=== PATIENT | female | born 1955 | race Caucasian/White ===

== ENCOUNTER 2020-07-17 16:26 | Outpatient (REF) | payer MEDICARE, OTHER, SELFPAY ==
--- NOTE | 2020-07-17 | MM_ITS ---
EXAMINATION: MM SCREENING DIGITAL BREAST TOMOSYNTHESIS, BILATERAL CLINICAL INFORMATION: Screening. Asymptomatic. The lifetime risk of breast cancer based on the Tyrer-Cuzick Model is 4.5%. COMPARISON: Mammography: February 21, 2019 and studies dating back to October 07, 2011 TECHNIQUE: Digital breast tomosynthesis is performed in both the craniocaudal and mediolateral oblique views along with computer-aided detection (CAD). Synthesized 2D images are generated from the tomosynthesis. FINDINGS: There are scattered areas of fibroglandular density (ACR BI-RADS breast composition Category b). There are no significant masses, abnormal calcifications, or other abnormalities. MM/MM tomosynthesis screening BI IMPRESSION: There are no significant changes from prior study. ASSESSMENT: BI-RADS 1: Negative RECOMMENDATION: Routine annual mammography screening. This patient's information was entered into a reminder system with a target due date for their next mammogram.
== END 2020-07-17 16:27 | disposition home or self-care (01) ==
LOC: HO.MAMMO 16:26
PROVIDERS: Visit Provider Internal Medicine
DX: Z12.31 Encounter for screening mammogram for malignant neoplasm of breast (principal)
CPT/HCPCS: 77063; 77067

== ENCOUNTER → 2020-08-11 08:13 | Outpatient (BNVA) | payer MEDICARE, OTHER, SELFPAY | PROVIDERS: PCP Internal Medicine; Referring Provider Internal Medicine; Visit Provider Nurse Practitioner Gerontology | DX: E11.65 Type 2 diabetes mellitus with hyperglycemia (principal); E78.5 Hyperlipidemia, unspecified | CPT/HCPCS: 82947; Q3014 ==

== ENCOUNTER 2020-09-01 17:54 | Outpatient (REF) | payer MEDICARE, OTHER, SELFPAY | END 2020-09-01 17:55 | disposition home or self-care (01) | LOC: HO.LAB 17:54 | PROVIDERS: Visit Provider Internal Medicine | DX: Z20.828 Contact with and (suspected) exposure to other viral communicable diseases (principal) | CPT/HCPCS: C9803; U0003 ==

== ENCOUNTER 2020-10-13 10:41 | Outpatient (REF) | payer MEDICARE, OTHER, SELFPAY ==
[2020-10-13 12:51] LABS: MANUAL DIFF FLAG NO
[2020-10-13 13:04] LABS: Basophils Percent Auto 0.5 % (0-2); Eosinophils Percent Auto 0.1 % (0-4); Hematocrit 44.8 % (37-47); Hemoglobin 15.5 g/dl (12.0-16.0); Imm Gran Abs Auto 0.03 X10*3/uL (0.00-0.03); Imm Gran Pct Auto 0.4 % (0.0-0.4); Lymphocytes Absolute Auto 2.2 X10*3/uL (1.2-4.9); Lymphocytes Percent Auto 27.2 % (20-40); Mean Corpuscular HGB Conc 34.6 g/dl (31.0-35.0); Mean Corpuscular Volume 89.6 fL (80-98); Mean Platelet Volume 11.2 fL (9.4-12.3); Monocytes Absolute Auto 0.3 X10*3/uL (0.1-1.2); Monocytes Percent Auto 4.1 % (2-11); Neutrophils Absolute Auto 5.5 X10*3/uL (2.0-8.3); Neutrophils Percent Auto 67.7 % (45-73); Platelet Count 332 X10*3/uL (160-400); Red Cell Distribution Width 11.9 % (11.0-16.0); White Blood Count 8.1 X10*3/uL (4.8-10.8)
[2020-10-13 13:44] LABS: Alanine Aminotransferase 30 U/L (0-31); Albumin Level 4.9 g/dL (3.5-5.0); Alkaline Phosphatase 85 U/L (39-117); Anion Gap 17 (12-20); Aspartate Amino Transferase 20 U/L (5-31); Bilirubin Total 0.6 mg/dL (0.0-1.0); Blood Urea Nitrogen 13 mg/dL (9-16); Calcium 10.3 mg/dL (8.4-10.2); Carbon Dioxide 27 mmol/L (22-29); Chloride 98 mmol/L (96-108); Estimated Glomerular Filt Rate > 60; Glucose Fasting 129 mg/dL (60-99); Potassium 4.5 mmol/L (3.3-5.1); Sodium 137 mmol/L (135-145); Total Protein 7.6 g/dL (6.5-8.0)
== END 2020-10-13 10:42 | disposition home or self-care (01) ==
LOC: HO.LAB 10:41
PROVIDERS: Absent Provider Nurse Practitioner Gerontology; PCP Internal Medicine; Visit Provider Nurse Practitioner Family
DX: E11.65 Type 2 diabetes mellitus with hyperglycemia (principal); A09 Infectious gastroenteritis and colitis, unspecified; K92.1 Melena
CPT/HCPCS: 36415; 80048; 80053; 85025; 87045; 87046

== ENCOUNTER 2020-10-21 10:43 | Outpatient (REF) | payer MEDICARE, OTHER, SELFPAY | END 2020-10-21 10:44 | disposition home or self-care (01) | LOC: HO.LAB 10:43 | PROVIDERS: PCP Internal Medicine; Visit Provider Internal Medicine | DX: Z20.822 Contact with and (suspected) exposure to COVID-19 (principal) | CPT/HCPCS: 36415; C9803; U0003; U0005 ==

== ENCOUNTER → 2020-11-10 14:45 | Outpatient (BNVA) | payer MEDICARE, OTHER, SELFPAY | PROVIDERS: PCP Internal Medicine; Visit Provider Nurse Practitioner Family | DX: Z13.89 Encounter for screening for other disorder (principal) | CPT/HCPCS: Q3014 ==

== ENCOUNTER → 2020-12-08 14:20 | Outpatient (BNVA) | payer MEDICARE, OTHER, SELFPAY | PROVIDERS: PCP Internal Medicine; Visit Provider Internal Medicine Cardiovascular Disease | DX: I77.9 Disorder of arteries and arterioles, unspecified (principal); R06.00 Dyspnea, unspecified; I10 Essential (primary) hypertension | CPT/HCPCS: 93005; 99202 ==

== ENCOUNTER → 2020-12-15 07:42 | Outpatient (REF) | payer MEDICARE, OTHER, SELFPAY ==
--- NOTE | 2020-12-15 07:45 | CA_ITS ---
Acquisition Time: 2020-12-15 08:04:50 Total Exercise Time: 00:07:12 Test Indications: Dyspnea Medications: ALBUTEROL ASA ATORVASTATIN PANTOPRAZOLE JARDIENCE LISINOPRIL Protocol: BRANDY Max HR: 157 BPM 101% of Pred: 155 BPM Max BP: 180/064 mmHG Max Work Load: 8.8 METS Exercise stress test using Brandy protocol total of 7 min 12 sec, METS 8.80 TAPHR up to 100 %. Pt tolerated well. Denies any anginal sx. EKG without any arrhythmias, no ischemic changes seen during exercise or in recovery. Hypertensive response to exercise. Test reviewed with Dr. Hwang Referred By: Leodan Lemus Overread By: Cheryle Joseph NP
== END ==
LOC: HO.CARD 07:42
PROVIDERS: Visit Provider Internal Medicine Cardiovascular Disease
DX: R06.00 Dyspnea, unspecified (principal)
CPT/HCPCS: 93016; 93017; 93018

== ENCOUNTER 2020-12-23 09:35 | Day surgery (SDC) | payer MEDICARE, OTHER, SELFPAY ==
--- NOTE | 2020-12-19 08:59 | HO.ANESPROP2 ---
Documented by User: Eugenia Vera 12/19/20 09:02 HPI - Anesthesia Eval Consult details Narrative: 65yo F for Colonoscopy Cardiac cleared at low to intermed risk PMFSH Active Problems Active Problems: All Active Problems (Updated 12/08/20 @ 14:51 by Leodan Lemus MD) ALICEA (dyspnea on exertion) (Acute) Carotid arterial disease (Acute) Hypertension (Acute) Blood in stool (Acute) Diarrhea, infectious, adult (Acute) Type 2 diabetes mellitus with hyperglycemia (Acute) Hypercholesterolemia (Acute) Hyperlipidemia LDL goal <70 (Acute) Asthma (Acute) Past Medical History Medical History Asthma Blood in stool Carotid stenosis Diarrhea, infectious, adult Fatty liver History of renal calculi Hypercholesterolemia Hyperlipidemia LDL goal <70 Hypertension Osteoporosis Tubular adenoma of colon Type 2 diabetes mellitus with hyperglycemia Family History Family History Mother No problems noted. Sister Pacemaker Brother No problems noted. Sister No problems noted. Son No problems noted. Daughter No problems noted. Family/Other Diabetes Surgical History Surgical History H/O colonoscopy History of surgery Social History Social History Household Members: Spouse and Children Alcohol intake: current Alcohol intake frequency: does not drink Smoking Status: Former smoker Smoking Quit Date: 30 years ago Use of substances other than those prescribed or required for medical reasons: No Advance Directives: No Advance Directives Information Provided: Yes Meds Allergies Allergy/AdvReac Type Severity Reaction Status Date / Time No Known Allergies Allergy Verified 11/10/20 14:45 [No Known Allergies*] Home Medications Medication Instructions Recorded Confirmed Last Taken Type aspirin 81 mg tablet,delayed 81 mg PO DAILY 06/04/20 12/23/20 12/22/20 History release cholecalciferol (vitamin D3) 25 25 mcg PO DAILY 06/04/20 12/18/20 Unknown History mcg (1,000 unit) capsule cyanocobalamin (vitamin B-12) 1,000 mcg PO DAILY 06/04/20 12/18/20 Unknown History 1,000 mcg capsule fluticasone propionate 50 1 spray INTRANASAL DAILY 06/04/20 12/18/20 Unknown History mcg/actuation nasal spray,suspension lisinopril 5 mg tablet 5 mg PO DAILY 06/04/20 12/18/20 Unknown History multivitamin 1 tab PO DAILY 06/04/20 12/18/20 Unknown History ascorbic acid 100 mg-elderberry tab PO 07/16/20 10/13/20 Unknown History fruit 50 mg chewable tablet flash glucose sensor #1 ea 08/11/20 10/13/20 Unknown History glimepiride 2 mg tablet 2 mg PO DAILY 12/08/20 12/18/20 Unknown History Exam Exam Date and Time: December 19, 2020 0859 Pertinent Lab Results Pertinent Lab Results: Laboratory Tests 10/13/20 10/13/20 10:58 10:58 WBC 8.1 Hgb 15.5 Hct 44.8 Plt Count 332 Sodium 137 Potassium 4.5 Chloride 98 Carbon Dioxide 27 BUN 13 Creatinine 0.87 Narrative Narrative: Stress 12/2020 Protocol: REILLY Max HR: 157 BPM 101% of Pred: 155 BPM Max BP: 180/064 mmHG Max Work Load: 8.8 METS Exercise stress test using Reilly protocol total of 7 min 12 sec, METS 8.80 TAPHR up to 100 %. Pt tolerated well. Denies any anginal sx. EKG without any arrhythmias, no ischemic changes seen during exercise or in recovery. Hypertensive response to exercise. Test reviewed with Dr. Hwang EKG 12/2020 Sinus tachycardia 104/min, normal EKG, QTc 462 msec Assessment and Plan Assessment Anesthesia Assessment: Chart Reviewed Documented by User: Rolando Rodriguez 12/23/20 13:29 [facility] Past Medical History Medical History Asthma Blood in stool Carotid stenosis Diarrhea, infectious, adult Fatty liver History of renal calculi Hypercholesterolemia Hyperlipidemia LDL goal <70 Hypertension Osteoporosis Tubular adenoma of colon Type 2 diabetes mellitus with hyperglycemia Family History Family History Mother No problems noted. Sister Pacemaker Brother No problems noted. Sister No problems noted. Son No problems noted. Daughter No problems noted. Family/Other Diabetes Surgical History Surgical History H/O colonoscopy History of surgery Social History Social History Household Members: Spouse and Children Alcohol intake: current Alcohol intake frequency: does not drink Smoking Status: Former smoker Smoking Quit Date: 30 years ago Use of substances other than those prescribed or required for medical reasons: No Advance Directives: No Advance Directives Information Provided: Yes Meds Allergies Allergy/AdvReac Type Severity Reaction Status Date / Time No Known Allergies Allergy Verified 11/10/20 14:45 [No Known Allergies*] Home Medications Medication Instructions Recorded Confirmed Last Taken Type aspirin 81 mg tablet,delayed 81 mg PO DAILY 06/04/20 12/23/20 12/22/20 History release cholecalciferol (vitamin D3) 25 25 mcg PO DAILY 06/04/20 12/18/20 Unknown History mcg (1,000 unit) capsule cyanocobalamin (vitamin B-12) 1,000 mcg PO DAILY 06/04/20 12/18/20 Unknown History 1,000 mcg capsule fluticasone propionate 50 1 spray INTRANASAL DAILY 06/04/20 12/18/20 Unknown History mcg/actuation nasal spray,suspension lisinopril 5 mg tablet 5 mg PO DAILY 06/04/20 12/18/20 Unknown History multivitamin 1 tab PO DAILY 06/04/20 12/18/20 Unknown History ascorbic acid 100 mg-elderberry tab PO 07/16/20 10/13/20 Unknown History fruit 50 mg chewable tablet flash glucose sensor #1 ea 08/11/20 10/13/20 Unknown History glimepiride 2 mg tablet 2 mg PO DAILY 12/08/20 12/18/20 Unknown History Exam Airway Mallampati Class: II TM Dist: >3cm Neck ROM: Full
[2020-12-23 11:12] LABS: Glucose, Whole Blood 168 mg/dL (60-115)
[2020-12-23 11:16] VITALS: BP 138/78; PULSE 100; RESP 18; TEMP 36.8; O2SAT 98; BMI 24.8
[2020-12-23] MEDS: Lactated Ringers 1,000 ML 100 ML IVCONT (11:26)
--- NOTE | 2020-12-23 11:38 | W.PM.OPN ---
Operative Note Operative Note Date of Service: 12/23/20 Narrative: Pre-op diagnosis: Colon cancer screening, past episode of diarrhea Post-op diagnosis: other (Colon polyps, diverticulosis) Procedure: COLONOSCOPY TILL CECUM WITH BIOPSIES AND SNARE POLYPECTOMY Consent: Indications for the procedure and potential complications of bleeding, perforation, reaction to medications and missed diagnosis were discussed with the patient and informed consent was obtained. Instrument: Olympus PCF H 190 L variable stiffness pediatric colonoscope Monitoring: Vital signs and clinical assessment, intermittent blood pressure monitoring, continuous EKG monitoring, Pulse oximetry and Carbon Dioxide monitoring were done throughout the procedure. Colon withdrawl time was 22 minutes. Procedure: The patient was placed in the left lateral decubitis position and pre-procedure medications were administered. After a digital rectal examination of the ano-rectum, the video colonoscope was inserted into the rectum and advanced through the colon to the cecum. The colonoscope was slowly withdrawn in a retrograde panoramic fashion and the colon mucosa was carefully examined including a retroflexed view of the rectum. Findings and interventions are described below. Procedure Difficulty: Without difficulty Findings: Terminal Ileum: Not evaluated Cecum: Normal Ascending Colon: A 4-5 mm sessile polyp, removed with the cold biopsy Transverse Colon: A 4-5 mm sessile polyp removed with the cold biopsy. 7-8 mm sessile polyp removed with a cold snare and polyp was not retrieved Descending Colon: Normal Sigmoid Colon: A 6-7 mm sessile polyp removed with the cold biopsy. Moderate diverticulosis Rectum: Normal Ano-rectum: Normal Colon preparation: Good after copious irrigation Impression and Post Procedure Diagnosis: Colonoscopy Findings: Four small polyps removed - 1 polyp was not retrieved Moderate diverticulosis seen in the sigmoid colon Plan: Await pathology results Patient has an appointment on 01/21/21 in the GI Clinic with Cheryle Joseph FNP-BC. Repeat Colonoscopy interval based on path results - in 3-5 years if polyps are adenomatous and 10 years if polyps are hyperplastic. Above findings were reviewed with the patient and colon polyps and diverticulosis handouts were given in the discharge area Surgeon: Moriah Hennessy MD Anesthesia: MAC (Licha Austin CRNA) Integrity Specialist: Natalie Hawkins Estimated blood loss (mL): 0 Pathology: other (a- ascending colon polyp b- transverse colon polyp c- random colon biopsies d- sigmoid polyp) Condition: stable Disposition: PACU
--- NOTE | 2020-12-23 11:39 | MHC.SHP ---
Pre-Procedural Eval Section A The patient is an INPATIENT: No The History & Physical has been completed within 30 days and I have reviewed it.: No Section B Chief Complaint: Screening Details of Present Illness: Colon cancer screening, history of diarrhea in the begining of oct i seen someone because i was having diarrhea for over two weeks, my stool was black but since i got medications and changed my diet it has helped a lot with that problem. I am so muh better than i was. Relevant Social History: Tobacco Use Present Medications: see Short Stay Collaborative assessment Medical History: Significant History (Asthma Blood in stool Carotid stenosis Diarrhea, infectious, adult Fatty liver History of renal calculi Hypercholesterolemia Hyperlipidemia LDL goal <70 Hypertension Osteoporosis Tubular adenoma of colon Type 2 diabetes mellitus with hyperglycemia) History of Previous Operations: Relevant previous surgery/procedure and date(s) (History of colonoscopy) Allergies: Allergies Allergy/AdvReac Type Severity Reaction Status Date / Time No Known Allergies Allergy Verified 11/10/20 14:45 [No Known Allergies*] Review of Systems Sugical H&P ROS: Negative: Constitution, Cardiovascular, Respiratory and Gastrointestinal Exam Surgical H&P Exam: Normal: Heart, Normal: Lungs, Normal: Extremities and Normal: Abdomen Plan Diagnosis/Plan: Unchanged I have reviewed the history and physical and performed a pertinent physical examination on my patient. No changes have occurred unless specified.
[2020-12-23 12:43] VITALS: BP 124/57; PULSE 96; RESP 16; TEMP 36.4; O2SAT 97
[2020-12-23 12:58] VITALS: BP 113/74; PULSE 88; RESP 16; TEMP 36.4; O2SAT 98
== END 2020-12-23 13:09 | disposition home or self-care (01) ==
PROVIDERS: PCP Internal Medicine; Visit Provider Internal Medicine Gastroenterology
PROC: 0DJD8ZZ Inspection of Lower Intestinal Tract, Via Natural or Artificial Opening Endoscopic (ICD-10-PCS; CPT 45378; principal; 2020-12-23 11:00)
DX: Z12.11 Encounter for screening for malignant neoplasm of colon (principal); Z86.010 Personal history of colon polyps; D12.3 Benign neoplasm of transverse colon; K63.5 Polyp of colon; K57.30 Diverticulosis of large intestine without perforation or abscess without bleeding; K76.0 Fatty (change of) liver, not elsewhere classified; I10 Essential (primary) hypertension; J45.909 Unspecified asthma, uncomplicated; M81.0 Age-related osteoporosis without current pathological fracture; E11.65 Type 2 diabetes mellitus with hyperglycemia; Z79.84 Long term (current) use of oral hypoglycemic drugs; Z79.82 Long term (current) use of aspirin; Z79.51 Long term (current) use of inhaled steroids; Z79.899 Other long term (current) drug therapy; Z87.891 Personal history of nicotine dependence
CPT/HCPCS: 45385; 45380; 82947; 88305

== ENCOUNTER 2020-12-29 15:23 | Outpatient (REF) | payer MEDICARE, OTHER, SELFPAY ==
--- NOTE | ~2020-12-29 | US_ITS ---
EXAMINATION: US EXTRACRANIAL CAROTID DUPLEX, BILATERAL CLINICAL INFORMATION: This is a 65-year-old female with diabetes. Carotid artery disease. COMPARISON: Comparison is made to the previous study dated 09/21/2017 which demonstrated 0-49% right internal carotid artery stenosis and 50-79% left internal carotid artery stenosis. TECHNIQUE: Real-time ultrasound and Doppler techniques (integrating B-mode 2-D vascular images, Doppler spectral analysis and color-flow Doppler imaging) were utilized to interrogate the extracranial carotid arteries, the vertebral arteries and proximal subclavian arteries bilaterally. The degree of stenosis is determined by criteria similar to NASCET. FINDINGS: Right Side: 1. There is moderate atherosclerotic plaque seen in the bifurcation/proximal ICA region. 2. The common carotid artery PSV proximally is 105 cm/s and distally 154 cm/s. 3. The proximal internal carotid artery velocities are 154 cm/s systolic and 30 cm/s diastolic. 4. The proximal external carotid artery PSV is 137 cm/s. 5. The vertebral artery shows antegrade flow. 6. The subclavian artery waveforms are normal. Left Side: 1. There is moderate atherosclerotic plaque seen in the bifurcation/proximal ICA region. 2. The common carotid artery PSV proximally is 81 cm/s and distally 144 cm/s. 3. The proximal internal carotid artery velocities are 128 cm/s systolic and 22 cm/s diastolic. 4. The proximal external carotid artery PSV is 149 cm/s. 5. The vertebral artery shows antegrade flow. 6. The subclavian artery waveforms are normal. US/US carotid duplex BI IMPRESSION: 1. RIGHT: Moderate, hemodynamically significant stenosis of the proximal right internal carotid artery corresponding to a 50-79% stenosis by velocity criteria. The category severity of disease has progressed when compared to the previous study dated 09/21/2017. 2. LEFT: Moderate, hemodynamically significant stenosis of the proximal left internal carotid artery corresponding to a 50-79% stenosis by velocity criteria. The category severity of disease appears unchanged when compared to the previous study dated 09/21/2017.
== END 2020-12-29 15:24 | disposition home or self-care (01) ==
LOC: HO.US 15:23
PROVIDERS: PCP Internal Medicine; Visit Provider Internal Medicine Cardiovascular Disease
DX: I65.03 Occlusion and stenosis of bilateral vertebral arteries (principal); I77.9 Disorder of arteries and arterioles, unspecified
CPT/HCPCS: 93880

== ENCOUNTER → 2021-01-19 08:13 | Outpatient (REF) | payer MEDICARE, OTHER, SELFPAY ==
--- NOTE | 2021-01-19 08:16 | CA_ITS ---
Transthoracic Echocardiogram Patient (Last, First, Middle): Betsy Batista, Gender: Female Date of : 1955 Age: 65 Procedure Date: 01/19/2021 Procedure Type: Transthoracic Echocardiogram Location: OP Height: 157.48 cm Weight: 58.97 kg BSA: 1.59 m2 Heart Rate: bpm BP: 136 / 70 mmHg Jira Developer: Romeo MD: Leodan Lemus MD Wood Piler: Brijesh Ward MD Symptoms: R06.00 - Dyspnea, unspecified Study Quality: Good ECG Rhythm: Sinus Conclusions: - 1. Normal LV systolic function with impaired relaxation filling pattern 2. Normal cardiac valvular Doppler 3. Normal RV systolic pressure 4. No pericardial effusion Findings Left Ventricle Normal left ventricular size, thickness, and systolic function. The visually estimated ejection fraction is between 65-70%. Spectral Doppler is indicative of an impaired relaxation filling pattern. E/E prime ratio is between 8 and 15 consistent with indeterminate filling pressures. Right Ventricle Normal right ventricular cavity size and systolic function. Atria Both atria are normal in size. Aortic Valve Normal aortic valve structure and function. There is no aortic valve stenosis. There is no aortic valve regurgitation. Mitral Valve Likely normal mitral valve structure and function. There is trace mitral valve regurgitation. There is no mitral valve stenosis. Pulmonic Valve The pulmonic valve was not well visualized. Tricuspid Valve Normal tricuspid valve structure. There is trace tricuspid valve regurgitation. The right ventricular systolic pressure is normal. The right ventricular systolic pressure is 32 mmHg. Normal right atrial pressure. There is no evidence of pulmonary hypertension. Great Vessels All visible segments of the aorta are normal in size. The pulmonary artery was not well visualized. Venous The inferior vena cava is normal in size and collapses greater than 50% with inspiration. Pericardium/Pleural There is no evidence of pericardial effusion. Prior Study Comparison No prior study available for comparison. Measurements 2D Linear Measurements RVIDd: 2.37 RVIDd Index: 1.49 IVSd: 1.03 0.6-0.9/0.6-1.0 cm LVIDd: 4.29 3.9-5.3/4.2-5.9 cm LVIDd Index: 2.70 2.4-3.2/2.2-3.1 cm/m2 LVIDs: 2.90 2.0-3.6 cm LVPWd: 0.68 0.7-1.1 cm Ao Root: 2.60 2.1-3.5 cm LA Diam: 3.30 2.7-3.8/3.0-4.0 cm LAIDs Index: 2.08 1.5-2.3 cm/m2 LV Mass: 142.64 67-162/88-224 g LV Mass Index: 89.71 43-95/49-115 g/m2 LVOT Diam: 2.00 3.0+(-)1.3 cm 2D Systolic Function EF 4C: 76.20 >55% EF 2C: 73.90 >55% EF BiP: 74.80 >55% Mitral Valve MV Pk E: 0.68 MV PK A: 0.87 MV Decel Time: 204.00 E/A: 0.80 E'Lateral: 7.74 E'Medial: 5.51 E/E' Med: 12.40 E/E' Lat: 8.80 Aortic Valve AoV Pk Porter: 1.55 AoV Mn Porter: 0.99 AoV VTI: 0.25 AoV Pk Grad: 10.00 Aov Mn Grad: 5.00 SANDRA Cont.VTI: 2.50 LVOT LVOT Pk Porter: 0.99 LVOT Mn Porter: 0.72 LVOT VTI: 0.20 LVOT Pk Grad: 4.00 LVOT Mn Grad: 2.00 LVOT Diam: 2.00 LVOT Area: 3.14 Diastolic Function MV Pk E: 0.68 MV Pk A: 0.87 E/A: 0.80 E'Medial: 5.51 E/E' Med: 12.40 E' Laterial: 7.74 E/E' Lat: 8.80 Tricuspid Valve TR Pk Porter: 2.69 TR Pk Grad: 29.00 RA Press: 3.00 RVSP: 32.00 Great Vessels Aorta Ao Root-2D: 2.60 2.0-3.7 cm Ao Asc: 2.80 2.1-3.4 cm Ao Arch: 3.20 Updated in Other Vendor System with Status of Final Brijesh Ward MD electronically signed on 01/19/2021 1:39:45 PM with status of Final
== END ==
LOC: HO.CARD 08:13
PROVIDERS: Visit Provider Internal Medicine Cardiovascular Disease
DX: R06.00 Dyspnea, unspecified (principal)
CPT/HCPCS: 93306

== ENCOUNTER → 2021-01-21 14:08 | Outpatient (BNVA) | payer MEDICARE, OTHER, SELFPAY | PROVIDERS: PCP Internal Medicine; Visit Provider Nurse Practitioner Family | DX: K57.90 Diverticulosis of intestine, part unspecified, without perforation or abscess without bleeding (principal); D36.9 Benign neoplasm, unspecified site; Z98.890 Other specified postprocedural states | CPT/HCPCS: Q3014 ==

== ENCOUNTER 2021-05-15 09:49 | Outpatient (REF) | payer MEDICARE, OTHER, SELFPAY ==
--- NOTE | ~2021-05-15 | XR_ITS ---
EXAMINATION: XR WRIST, LEFT CLINICAL INFORMATION: Pain in left wrist COMPARISON: None TECHNIQUE: PA, lateral, and oblique views of the left wrist. FINDINGS: The bones and soft tissues are normal. No fracture. Alignment is anatomic with normal joint spaces. No erosions or abnormal soft tissue calcifications. XR/XR wrist LT min 3V IMPRESSION: No acute osseous abnormality of the left wrist.
== END 2021-05-15 09:50 | disposition home or self-care (01) ==
LOC: HO.XRAY 09:49
PROVIDERS: PCP Internal Medicine; Visit Provider Internal Medicine
DX: M25.532 Pain in left wrist (principal)
CPT/HCPCS: 73110

== ENCOUNTER → 2021-05-25 11:10 | Outpatient (BNVA) | payer MEDICARE, OTHER, SELFPAY | PROVIDERS: Visit Provider Nurse Practitioner Family | DX: K57.90 Diverticulosis of intestine, part unspecified, without perforation or abscess without bleeding (principal); K21.9 Gastro-esophageal reflux disease without esophagitis | CPT/HCPCS: Q3014 ==

== ENCOUNTER → 2021-08-12 13:32 | Outpatient (BNVA) | payer MEDICARE, OTHER, SELFPAY | PROVIDERS: PCP Internal Medicine; Visit Provider Orthopaedic Surgery | DX: M65.832 Other synovitis and tenosynovitis, left forearm (principal); M65.4 Radial styloid tenosynovitis [de Quervain] | CPT/HCPCS: 20550 ×2; 99202; J1100 ==

== ENCOUNTER 2021-09-21 13:14 | Outpatient (REF) | payer MEDICARE, OTHER, SELFPAY ==
[2021-09-21 13:39] LABS: MANUAL DIFF FLAG NO
[2021-09-21 13:40] LABS: Basophils Percent Auto 0.4 % (0-2); Eosinophils Absolute Auto 0.1 X10*3/uL (0.0-0.4); Eosinophils Percent Auto 1.4 % (0-4); Hematocrit 45.6 % (37.0-47.0); Hemoglobin 15.5 g/dl (12.0-16.0); Imm Gran Abs Auto 0.03 X10*3/uL (0.00-0.03); Imm Gran Pct Auto 0.4 % (0.0-0.4); Lymphocytes Absolute Auto 2.3 X10*3/uL (1.2-4.9); Lymphocytes Percent Auto 31.1 % (20-40); Mean Corpuscular Hemoglobin 30.7 pg (27.0-33.0); Mean Corpuscular Volume 90.3 fL (80.0-98.0); Monocytes Absolute Auto 0.4 X10*3/uL (0.1-1.2); Neutrophils Absolute Auto 4.5 x10*3/uL (2.0-8.3); Neutrophils Percent Auto 61.7 % (45-73); Platelet Count 282 X10*3/uL (160-400); Red Blood Count 5.05 X10*6/uL (4.20-5.50); Red Cell Distribution Width 11.8 % (11.0-16.0); White Blood Count 7.4 X10*3/uL (4.8-10.8)
[2021-09-21 13:58] LABS: Estimated Average Glucose 237 mg/dL; Hemoglobin A1c % 9.9 %
[2021-09-21 14:22] LABS: Alanine Aminotransferase 19 U/L (0-31); Albumin Level 4.4 g/dL (3.5-5.0); Alkaline Phosphatase 97 U/L (39-117); Anion Gap 14 (12-20); Aspartate Amino Transferase 15 U/L (5-31); Bilirubin Total 0.5 mg/dL (0.0-1.0); Blood Urea Nitrogen 17 mg/dL (9-16); Calcium 10.6 mg/dL (8.4-10.2); Carbon Dioxide 28 mmol/L (22-29); Chloride 101 mmol/L (96-108); Cholesterol 310 mg/dL; Estimated Glomerular Filt Rate 51; Glucose Random 390 mg/dL (60-115); HDL Cholesterol 46 mg/dL; LDL Cholesterol Calculated 196 mg/dl; Sodium 138 mmol/L (135-145); Total Protein 7.2 g/dL (6.5-8.0); Triglycerides 341 mg/dL
[2021-09-21 14:25] LABS: Free T4 (Free Thyroxine) 1.12 ng/dL (0.71-1.85); Thyroid Stimulating Hormone 1.22 uIU/mL (0.32-4.0); Vitamin D 25-OH Total 36.4 ng/mL (>30)
[2021-09-21 14:46] LABS: Folate > 20.0 ng/mL (> or = 4.0); Vitamin B12 856 pg/mL (200-900)
[2021-09-22 04:26] LABS: HBc Num1 0.09 S/CO (0.00-0.79); Hepatitis B Core Antibody Nonreactive (Nonreactive)
[2021-09-22 04:29] LABS: HBS Num1 1.03 mIU/mL (0-7.99); HBsAGNum1 0.29 S/CO (0.00-0.99); Hepatitis B Surface Antigen Negative (Negative); ~Hepatitis B Surface Antibody NONREACTIVE (Nonreactive)
[2021-09-22 21:27] LABS: Rubeola IgG (Measles) >300.00 AU/mL
== END 2021-09-21 13:15 | disposition home or self-care (01) ==
LOC: HO.LAB 13:14
PROVIDERS: PCP Internal Medicine; Visit Provider Internal Medicine
DX: Z01.84 Encounter for antibody response examination (principal); E11.65 Type 2 diabetes mellitus with hyperglycemia; E78.00 Pure hypercholesterolemia, unspecified
CPT/HCPCS: 36415; 80053; 80061; 82306; 82607; 82746; 83036; 84439; 84443; 85025; 86704; 86706; 86735; 86762; 86765; 86787; 87340

== ENCOUNTER 2021-10-15 08:03 | Outpatient (REF) | payer MEDICARE, OTHER, SELFPAY ==
--- NOTE | ~2021-10-15 | MM_ITS ---
EXAMINATION: MM SCREENING DIGITAL BREAST TOMOSYNTHESIS, BILATERAL CLINICAL INFORMATION: Screening. Asymptomatic. The lifetime risk of breast cancer based on the Tyrer-Cuzick Model is 2.6%. COMPARISON: Mammography: July 17, 2020 and studies dating back to December 26, 2013 TECHNIQUE: Digital breast tomosynthesis is performed in both the craniocaudal and mediolateral oblique views along with computer-aided detection (CAD). Synthesized 2D images are generated from the tomosynthesis. FINDINGS: There are scattered areas of fibroglandular density (ACR BI-RADS breast composition Category b). There are no significant masses, abnormal calcifications, or other abnormalities. MM/MM tomosynthesis screening BI IMPRESSION: There are no significant changes from prior study. ASSESSMENT: BI-RADS 1: Negative RECOMMENDATION: Routine annual mammography screening. This patient's information was entered into a reminder system with a target due date for their next mammogram.
== END 2021-10-15 08:04 | disposition home or self-care (01) ==
LOC: HO.MAMMO 08:03
PROVIDERS: Visit Provider Internal Medicine
DX: Z12.31 Encounter for screening mammogram for malignant neoplasm of breast (principal)
CPT/HCPCS: 77063; 77067

== ENCOUNTER 2021-10-23 08:12 | Outpatient (REF) | payer MEDICARE, OTHER, SELFPAY ==
--- NOTE | ~2021-10-23 | MM_ITS ---
EXAMINATION: BONE DENSITOMETRY CLINICAL INDICATION: Osteopenia. COMPARISON: Previous BD dated 01/12/2018 and baseline BD dated 08/20/2010. TECHNIQUE: Using a [employer] DXA System (software version: 13.1) manufactured by [employer], dual-energy x-ray absorptiometry was performed of the lumbar spine and left hip. The images are of good technical quality. Summary results are attached. FINDINGS: AP SPINE L1-L4: Current: BMD 0.995 g/cm2, Z-score 0.3, T-score -1.5, osteopenia, 3.1% decrease from previous, 2.5% increase from baseline (<5% change is not significant). Prior: BMD 1.027 g/cm2. Baseline: BMD 0.971 g/cm2. LEFT FEMUR, NECK: Current: BMD 0.757 g/cm2, Z-score -0.3, T-score -2.0, osteopenia. Prior: BMD 0.670 g/cm2. Baseline: BMD 0.821 g/cm2. LEFT FEMUR, TOTAL: Current: BMD 0.835 g/cm2, Z-score 0.1, T-score -1.4, osteopenia, 12.1% increase from previous, 8.1% decrease from baseline (<5% change is not significant). Prior: BMD 0.745 g/cm2. Baseline: BMD 0.909 g/cm2. IDENTIFIED RISK FACTORS: Menopause, osteoporosis. HISTORY OF FRACTURE: None listed. MEDICATIONS: Vitamin D. MM/XR DEXA axial skeleton IMPRESSION: 1. DIAGNOSIS: Osteopenia based on the lowest T-score value of -2.0 in the femoral neck applying World Health Organization criteria. 2. 10-YEAR FRACTURE RISK PREDICTION, FRAX: Major osteoporotic fracture (clinical spine, forearm, hip or shoulder) 6.2%. Hip fracture 1.0%. 3. Treatment Recommendations: NOF guidelines recommend consideration for treatment in postmenopausal women and men age 50 and older presenting with the following: -A hip or vertebral (clinical or morphometric) fracture. -T-score less than or equal to -2.5 at the femoral neck or spine after appropriate evaluation to exclude secondary causes. -Low bone mass at the hip or spine and a 10-year fracture probability by FRAX of greater than or equal to 3% for hip fracture or greater than or equal to 20% for major osteoporotic fracture based on the [place] adapted WHO algorithm. 4. Other Recommendations: All treatment decisions require clinical judgment and consideration of individual patient factors, including patient preferences, comorbidities, previous drug use, risk factors not captured in the FRAX model (e.g. frailty, falls, vitamin D deficiency, increased bone turnover, interval significant decline in bone density) and possible under or overestimation of fracture risk by FRAX. Additional medical evaluation for secondary cause of low bone mineral density may be appropriate. FUTURE SCAN RECOMMENDATION: People with diagnosed cases of osteoporosis or at high risk for fracture should have regular bone mineral density tests. For patients eligible for Medicare, routine testing is allowed once every 2 years. The testing frequency can be increased to one year for patients who have rapidly progressing disease, those who are receiving or discontinuing medical therapy to restore bone mass, or have additional risk factors.
== END 2021-10-23 08:13 | disposition home or self-care (01) ==
LOC: HO.MAMMO 08:12
PROVIDERS: Visit Provider Internal Medicine
DX: Z13.820 Encounter for screening for osteoporosis (principal); M81.0 Age-related osteoporosis without current pathological fracture; M85.80 Other specified disorders of bone density and structure, unspecified site; Z78.0 Asymptomatic menopausal state; Z79.899 Other long term (current) drug therapy
CPT/HCPCS: 77080

== ENCOUNTER → 2021-12-15 15:36 | Outpatient (BNVA) | payer MEDICARE, OTHER, SELFPAY | PROVIDERS: PCP Internal Medicine; Visit Provider Orthopaedic Surgery | DX: M65.4 Radial styloid tenosynovitis [de Quervain] (principal) | CPT/HCPCS: 99212 ==

== ENCOUNTER 2022-05-01 08:39 | Emergency (ER) | payer MEDICARE, OTHER, SELFPAY ==
[2022-05-01 08:49] VITALS: BP 136/78; PULSE 90; RESP 16; TEMP 35.5; O2SAT 96; BMI 22.3
--- NOTE | 2022-05-01 08:54 | ECG_ITS ---
Test Reason : abd pain Blood Pressure : / mmHG Vent. Rate : 078 BPM Atrial Rate : 078 BPM P-R Int : 146 ms QRS Dur : 084 ms QT Int : 392 ms P-R-T Axes : 062 062 043 degrees QTc Int : 446 ms Normal sinus rhythm Normal ECG When compared with ECG of 19-DEC-2009 07:38, Heart rate has decreased Referred By: Generic ED Physician Electronically Signed By:ADOLFO JOHNSON
--- NOTE | 2022-05-01 11:03 | ED.NAVMDI ---
HPI - Nausea/Vomiting/Diarrhea General Chief complaint: Nausea/Vomiting/Diarrhea Stated complaint: Diarrhea x1 month Time Seen by Provider: 05/01/22 10:57 Source: patient Mode of arrival: ambulatory Limitations: no limitations History of Present Illness HPI Narrative: 67-year-old female came in for evaluation of diarrhea for the past 3 weeks. Patient been having nonbloody watery diarrhea for the past 3 weeks, complained of no abdominal pain, no nausea, no vomiting, no loss of weight. No fever, no chills, no recent travel, no recent use of antibiotic, no sick contact. Past medical history significant for diverticular disease. No past abdominal surgery. Related Data Home Medications Medication Instructions Recorded Confirmed aspirin 81 mg tablet,delayed 81 mg PO DAILY 06/04/20 05/15/21 release cyanocobalamin (vitamin B-12) 1,000 mcg PO DAILY 06/04/20 05/15/21 1,000 mcg capsule fluticasone propionate 50 1 spray intranasal DAILY 06/04/20 05/15/21 mcg/actuation nasal spray,suspension (Flonase Allergy Relief) multivitamin 1 tab PO DAILY 06/04/20 05/15/21 ascorbic acid 100 mg-elderberry tab PO 07/16/20 05/15/21 fruit 50 mg chewable tablet (Airborne (elderberry)) flash glucose sensor #1 ea 08/11/20 05/15/21 glimepiride 2 mg tablet 2 mg PO DAILY 12/08/20 05/15/21 Previous Rx's Medication Instructions Recorded pantoprazole 20 mg tablet,delayed 20 mg PO DAILY #90 tabs 11/10/20 release atorvastatin 80 mg tablet 80 mg PO BEDTIME #90 tabs 02/05/21 flash glucose scanning reader #1 ea 04/13/21 (FreeStyle Tip 14 Day [place]) flash glucose sensor (FreeStyle #6 kits 04/13/21 Tip 14 Day Sensor kit) WRIST SPLINT (LEFT) #1 ea 05/15/21 trazodone 50 mg tablet 50 mg PO BEDTIME #90 tabs 06/08/21 blood pressure monitor (Blood #1 ea 06/17/21 Pressure Kit) lisinopril 5 mg tablet 5 mg PO DAILY 90 days #90 tabs 06/17/21 ibuprofen 600 mg tablet 600 mg PO Q8H PRN for pain #90 tabs 08/16/21 fluticasone 100 mcg-salmeterol 50 1 ea PO BID #60 ea 10/13/21 mcg/dose blistr powdr for inhalation (Wixela Inhub) albuterol sulfate 90 mcg/actuation 2 puff PO Q4H PRN for wheezing 02/22/22 aerosol inhaler #8.5 grams empagliflozin 25 mg tablet 25 mg PO QAM 90 days #90 tabs 02/22/22 (Jardiance) Allergies Allergy/AdvReac Type Severity Reaction Status Date / Time metformin AdvReac Intermediate diarrhea Verified 12/15/21 16:21 Review of Systems Review of Systems: All other systems are reviewed and are negative Constitutional: Reports as per HPI and Reports no additional constitutional complaints Eyes: Reports as per HPI and Reports no additional eye complaints Reports system reviewed and no additional complaints, except as documented Cardiovascular: Reports as per HPI and Reports no additional cardiovascular complaints Respiratory: Reports as per HPI and Reports no additional respiratory complaints Gastrointestinal: Reports as per HPI and Reports no additional gastrointestinal complaints Genitourinary: Reports no additional female genitourinary complaints Musculoskeletal: Reports no additional musculoskeletal complaints Skin/Breast: Reports system reviewed and no additional complaints, except as docu Psychiatric: Reports no additional psychiatric complaints Endocrine: Reports no additional endocrine complaints Hematologic/Lymphatic: Reports no additional hematologic/lymphatic complaints Allergic/Immunologic: Reports no additional allergic/immunologic complaints Reports system reviewed and no additional complaints, except as documented and Reports Abnormal speech present [facility] Past Medical History Medical History Asthma Blood in stool Carotid stenosis Diarrhea, infectious, adult Diverticulosis Fatty liver History of renal calculi Hypercholesterolemia Hyperlipidemia LDL goal <70 Hypertension Osteoporosis Tubular adenoma Tubular adenoma of colon Type 2 diabetes mellitus with hyperglycemia Surgical History H/O colonoscopy History of surgery Family History Family History Mother No problems noted. Sister Pacemaker Brother No problems noted. Sister No problems noted. Son No problems noted. Daughter No problems noted. 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 Blood pressure normal. Heart rate normal. Respiration rate normal. Temperature normal. Oxygen saturation normal. Appearance: Alert. Oriented X3. No acute distress. Head: Normal external exam. Normocephalic. Atraumatic. No Noriega signs noted. No raccoon eyes noted Eyes: PERRLA. EOMI. Conjunctiva and sclera normal. Eyelids normal. ENT: TM's Normal. Pharynx normal. Uvula midline. Moist mucous membranes. No trismus noted. No drooling noted. No muffled voice noted. Neck: Normal inspection. Neck supple. FROM. No adenopathy. Thyroid Normal. No meningeal signs. No neck mass noted. CVS: Normal heart rate and rhythm. Heart sound normal. No murmurs noted. Pulses normal throughout. Respiratory: No respiratory distress. Painless inspiration. Breath sounds normal. No wheezes/rales/rhonchi noted. Chest nontender. No accessory muscle usage noted or decreased air movement noted. Abdomen: Soft and nontender. Bowel sounds normal in all 4 quadrants. No distention noted. No organomegaly noted. No visible injury noted. Back: No CVA tenderness. Full range of motion noted. Skin: Skin warm and dry. Normal skin color. Normal skin turgor. No rashes/lesions/lacerations noted. Extremities: No lower extremity edema. Extremities exhibit normal range of motion. Extremities nontender. Neuro: Oriented X 3. Cranial nerve exam: II-XII are grossly intact No motor deficit. No sensory deficit. Reflexes normal. Course Course Course Narrative: Patient came in for 3 weeks history of nonbloody watery diarrhea, no recent travel, no sick contacts, no recent use of antibiotic, stool for C diff is pending, labs are unremarkable except for hyperglycemia and patient is diabetic. Patient was instructed to drink plenty of fluids to avoid dehydration, and follow-up with hard tile setter if the diarrhea persists. Few WBCs in the stool not consistent with infectious diarrhea. C diff still pending. MDM - Nausea/Vomiting/Diarrhea Lab Data Attestation: I reviewed the patient's lab results. Result diagrams: 05/01/22 11:21 05/01/22 11:21 Labs: Lab Results 05/01/22 05/01/22 05/01/22 Range/Units 11:21 11:21 11:21 WBC 5.9 (4.8-10.8) X10*3/uL RBC 4.89 (4.20-5.50) X10*6/uL Hgb 14.7 (12.0-16.0) g/dl Hct 42.6 (37.0-47.0) % MCV 87.1 (80.0-98.0) fL MCH 30.1 (27.0-33.0) pg MCHC 34.5 (31.0-35.0) g/dl RDW 11.9 (11.0-16.0) % Plt Count 298 (160-400) X10*3/uL MPV 10.4 (9.4-12.3) fL Immature Gran % (Auto) 0.3 (0.0-0.4) % Neut % (Auto) 57.0 (45-73) % Lymph % (Auto) 33.8 (20-40) % Vermillion % (Auto) 7.4 (2-11) % Eos % (Auto) 1.0 (0-4) % Baso % (Auto) 0.5 (0-2) % Lymph # (Auto) 2.0 (1.2-4.9) X10*3/uL Vermillion # (Auto) 0.4 (0.1-1.2) X10*3/uL Eos # (Auto) 0.1 (0.0-0.4) X10*3/uL Baso # (Auto) 0.0 (0.0-0.2) X10*3/uL Abs Immat Gran (auto) 0.02 (0.00-0.03) X10*3/uL Absolute Neuts (auto) 3.3 (2.0-8.3) x10*3/uL Absolute Nucleated RBC 0.000 (0.0-0.012) X10*3/uL Nucleated RBC % (auto) 0.0 (0.0-0.2) /100WBC Sodium 143 (135-145) mmol/L Potassium 4.2 (3.3-5.1) mmol/L Chloride 105 (96-108) mmol/L Carbon Dioxide 29 (22-29) mmol/L Anion Gap 13 (12-20) BUN 14 (9-16) mg/dL Creatinine 0.83 (0.5-1.4) mg/dL Estim Creat Clear Calc 51.9 Estimated GFR > 60 Random Glucose 181 H (60-115) mg/dL Calcium 9.7 D (8.4-10.2) mg/dL Total Bilirubin 0.7 (0.0-1.0) mg/dL Direct Bilirubin 0.2 (0.0-0.5) mg/dL AST 19 (5-31) U/L ALT 19 (0-31) U/L Alkaline Phosphatase 101 (39-117) U/L Total Protein 6.8 (6.5-8.0) g/dL Albumin 4.3 (3.5-5.0) g/dL Lipase 43 (8-78) U/L Stool Leukocytes, Qual FEW: < 2/OIF (NEGATIVE) Discharge Plan Discharge Clinical Impression: Diarrhea Patient Disposition: Home, Self-Care Instructions: Acute Diarrhea (ED) Prescriptions: No Action pantoprazole 20 mg tablet,delayed release (DR/EC) 20 mg PO DAILY Qty: 90 0RF atorvastatin 80 mg tablet 80 mg PO BEDTIME Qty: 90 0RF trazodone 50 mg tablet 50 mg PO BEDTIME Qty: 90 2RF ibuprofen 600 mg tablet 600 mg PO Q8H PRN (Reason: for pain) Qty: 90 0RF fluticasone propion-salmeterol [Wixela Inhub] 100-50 mcg/dose blister with device 1 ea PO BID Qty: 60 11RF albuterol sulfate 90 mcg/actuation HFA aerosol inhaler 2 puff PO Q4H PRN (Reason: for wheezing) Qty: 8.5 1RF Jardiance 25 mg tablet 25 mg PO QAM 90 Days Qty: 90 1RF multivitamin Tablet 1 tab PO DAILY aspirin 81 mg tablet,delayed release (DR/EC) 81 mg PO DAILY fluticasone propionate [Flonase Allergy Relief] 50 mcg/actuation spray,suspension 1 spray intranasal DAILY Rx Instructions: administer into each nostril cyanocobalamin (vitamin B-12) 1,000 mcg capsule 1,000 mcg PO DAILY ascorbic acid-elderberry fruit [Airborne (elderberry)] 100-50 mg tablet,chewable PO (DME) FreeStyle Tip 14 Day Sensor Kit See Rx Instructions .ROUTE .MEDSUPPLY Qty: 6 3RF Rx Instructions: As directed (DME) FreeStyle Tip 14 Day [place] Misc See Rx Instructions .ROUTE .MEDSUPPLY Qty: 1 0RF Rx Instructions: As directed (DME) blood pressure monitor [Blood Pressure Kit] Kit See Rx Instructions .ROUTE .MEDSUPPLY Qty: 1 0RF Rx Instructions: As directed lisinopril 5 mg tablet 5 mg PO DAILY 90 Days Qty: 90 2RF (DME) WRIST SPLINT (LEFT) small See Rx Instructions .Route .MEDSUPPLY Qty: 1 0RF Rx Instructions: As directed (DME) flash glucose sensor Kit See Rx Instructions topical DAILY Qty: 1 Rx Instructions: As directed glimepiride 2 mg tablet 2 mg PO DAILY Referrals: Moriah Hennessy MD [Physician] - Po,Jeanne Hyman MD [Primary Care Provider] -
[2022-05-01] MEDS: 0.9 % Sodium Chloride 1,000 ML 999 ML IV (11:23)
[2022-05-01 11:28] LABS: MANUAL DIFF FLAG NO
[2022-05-01 11:30] LABS: Basophils Percent Auto 0.5 % (0-2); Eosinophils Absolute Auto 0.1 X10*3/uL (0.0-0.4); Hematocrit 42.6 % (37.0-47.0); Hemoglobin 14.7 g/dl (12.0-16.0); Imm Gran Abs Auto 0.02 X10*3/uL (0.00-0.03); Imm Gran Pct Auto 0.3 % (0.0-0.4); Lymphocytes Percent Auto 33.8 % (20-40); Mean Corpuscular HGB Conc 34.5 g/dl (31.0-35.0); Mean Corpuscular Hemoglobin 30.1 pg (27.0-33.0); Mean Corpuscular Volume 87.1 fL (80.0-98.0); Mean Platelet Volume 10.4 fL (9.4-12.3); Monocytes Absolute Auto 0.4 X10*3/uL (0.1-1.2); Monocytes Percent Auto 7.4 % (2-11); Neutrophils Absolute Auto 3.3 x10*3/uL (2.0-8.3); Platelet Count 298 X10*3/uL (160-400); Red Blood Count 4.89 X10*6/uL (4.20-5.50); Red Cell Distribution Width 11.9 % (11.0-16.0); White Blood Count 5.9 X10*3/uL (4.8-10.8)
[2022-05-01 11:53] LABS: Alanine Aminotransferase 19 U/L (0-31); Albumin Level 4.3 g/dL (3.5-5.0); Alkaline Phosphatase 101 U/L (39-117); Anion Gap 13 (12-20); Aspartate Amino Transferase 19 U/L (5-31); Bilirubin Direct 0.2 mg/dL (0.0-0.5); Bilirubin Total 0.7 mg/dL (0.0-1.0); Blood Urea Nitrogen 14 mg/dL (9-16); Calcium 9.7 mg/dL (8.4-10.2); Carbon Dioxide 29 mmol/L (22-29); Chloride 105 mmol/L (96-108); Creatinine Clr Calc Pharmacy 51.9; Estimated Glomerular Filt Rate > 60; Glucose Random 181 mg/dL (60-115); Lipase 43 U/L (8-78); Potassium 4.2 mmol/L (3.3-5.1); Sodium 143 mmol/L (135-145); Total Protein 6.8 g/dL (6.5-8.0)
[2022-05-01 12:31] VITALS: BP 133/68; PULSE 75; RESP 16; TEMP 36.7; O2SAT 96
[2022-05-01 12:39] LABS: Leukocytes Stool Qualitative FEW: < 2/OIF (NEGATIVE)
[2022-05-01 14:58] LABS: CDiff Gene PCR NEGATIVE (Negative)
== END 2022-05-01 14:11 | disposition home or self-care (01) ==
PROVIDERS: Emergency Provider Emergency Medicine; PCP Internal Medicine
DX: R19.7 Diarrhea, unspecified (principal); I10 Essential (primary) hypertension; E11.9 Type 2 diabetes mellitus without complications; E78.5 Hyperlipidemia, unspecified; Z79.02 Long term (current) use of antithrombotics/antiplatelets; Z79.899 Other long term (current) drug therapy; Z79.82 Long term (current) use of aspirin
CPT/HCPCS: 36415; 80048; 80076; 83690; 85025; 87493; 89055; 93005; 96360; 99284

== ENCOUNTER 2022-06-01 15:10 | Outpatient (REF) | payer MEDICARE, OTHER, SELFPAY ==
[2022-06-01 16:11] LABS: Estimated Average Glucose 166 mg/dL; Hemoglobin A1c % 7.4 %
[2022-06-01 16:21] LABS: C Reactive Protein 0.41 mg/dL (< or = 0.50)
[2022-06-01 16:43] LABS: TSH reflex Free T4 0.96 uIU/mL (0.32-4.0)
[2022-06-01 17:00] LABS: Folate > 20.0 ng/mL (> or = 4.0); Vitamin B12 750 pg/mL (200-900)
[2022-06-02 12:57] LABS: Adenovirus F 40/41 Not Detected (Not Detect.); Astrovirus Not Detected (Not Detect.); Campylobacter Not Detected (Not Detect.); Cryptosporidium Not Detected (Not Detect.); Cyclospora cayetanensis Not Detected (Not Detect.); E. coli EAEC Not Detected (Not Detect.); E. coli EPEC Not Detected (Not Detect.); E. coli ETEC Not Detected (Not Detect.); E. coli STEC Not Detected (Not Detect.); Entamoeba histolytica Not Detected (Not Detect.); Giardia lamblia Not Detected (Not Detect.); Norovirus GI/GII Not Detected (Not Detect.); Plesiomonas shigelloides Not Detected (Not Detect.); Rotavirus A Not Detected (Not Detect.); Salmonella Not Detected (Not Detect.); Sapovirus Not Detected (Not Detect.); Shigella sp./EIEC Not Detected (Not Detect.); Vibrio Not Detected (Not Detect.); Vibrio Cholerae Not Detected (Not Detect.); Yersinia enterocolitica Not Detected (Not Detect.)
[2022-06-03 23:16] LABS: Transglutaminase Ab IgG <1.0 U/mL; Transglutaminase IgA <1.0 U/mL
[2022-06-05 14:51] LABS: Vitamin D 25-OH, D2 <4 ng/mL; Vitamin D 25-OH, D3 44 ng/mL; Vitamin D 25-OH, Total 44 ng/mL (30-100)
[2022-06-08 22:42] LABS: Pancreatic Elastase-1 353 mcg/g
== END 2022-06-01 15:11 | disposition home or self-care (01) ==
LOC: HO.LAB 15:10
PROVIDERS: PCP Internal Medicine; Visit Provider Nurse Practitioner Family
DX: R10.9 Unspecified abdominal pain (principal); R19.7 Diarrhea, unspecified; E55.9 Vitamin D deficiency, unspecified; E11.9 Type 2 diabetes mellitus without complications; K58.9 Irritable bowel syndrome, unspecified; R14.0 Abdominal distension (gaseous)
CPT/HCPCS: 36415; 82306; 82607; 82656; 82746; 83036; 84443; 86140; 86364; 87507; 99212

== ENCOUNTER 2022-08-08 10:12 | Emergency (ER) | payer MEDICARE, OTHER, SELFPAY ==
--- NOTE | ~2022-08-08 | XR_ITS ---
EXAMINATION: XR CHEST CLINICAL INFORMATION: Cough COMPARISON: December 19, 2009 TECHNIQUE: AP portable view of the chest was obtained. FINDINGS: No significant abnormality is noted involving the heart, lungs, mediastinum, bony thorax or soft tissues. XR/XR chest 1V IMPRESSION: No acute disease.
[2022-08-08 10:25] VITALS: BP 142/91; PULSE 112; RESP 18; TEMP 37.2; O2SAT 94
[2022-08-08 10:36] VITALS: BP 142/91; PULSE 112; RESP 18; TEMP 37.2; O2SAT 94; BMI 21.9
[2022-08-08 11:40] LABS: Influenza A PCR POSITIVE (Negative); Influenza B PCR NEGATIVE (Negative); Resp Syncy Virus RNA Qual PCR NEGATIVE (Negative); SARS COV2 PCR INHOUSE NEGATIVE (Negative)
--- NOTE | 2022-08-08 11:43 | ED.GENADULT ---
HPI - General Adult General Chief complaint: Upper Respiratory Symptoms Stated complaint: SOB/Cough [id number] Time Seen by Provider: 08/08/22 11:24 Source: patient Mode of arrival: ambulatory Limitations: no limitations History of Present Illness HPI narrative: 57-year-old female history of asthma presents to ED for coughing shortness of breath for 3 weeks with wheezing. Patient states her daughter is also sick with similar symptoms for the past 3 weeks. Patient states her granddaughter was sick but now is better. Related Data Home Medications Medication Instructions Recorded Confirmed aspirin 81 mg tablet,delayed 81 mg PO DAILY 06/04/20 05/04/22 release cyanocobalamin (vitamin B-12) 1,000 mcg PO DAILY 06/04/20 05/04/22 1,000 mcg capsule fluticasone propionate 50 1 spray intranasal DAILY 06/04/20 05/04/22 mcg/actuation nasal spray,suspension (Flonase Allergy Relief) multivitamin 1 tab PO DAILY 06/04/20 05/04/22 ascorbic acid 100 mg-elderberry tab PO 07/16/20 05/04/22 fruit 50 mg chewable tablet (Airborne (elderberry)) flash glucose sensor #1 ea 08/11/20 05/04/22 glimepiride 2 mg tablet 2 mg PO DAILY 12/08/20 05/04/22 Previous Rx's Medication Instructions Recorded pantoprazole 20 mg tablet,delayed 20 mg PO DAILY #90 tabs 11/10/20 release atorvastatin 80 mg tablet 80 mg PO BEDTIME #90 tabs 02/05/21 flash glucose scanning reader #1 ea 04/13/21 ([employer] Tip 14 Day [place]) WRIST SPLINT (LEFT) #1 ea 05/15/21 trazodone 50 mg tablet 50 mg PO BEDTIME #90 tabs 06/08/21 blood pressure monitor (Blood #1 ea 06/17/21 Pressure Kit) lisinopril 5 mg tablet 5 mg PO DAILY 90 days #90 tabs 06/17/21 ibuprofen 600 mg tablet 600 mg PO Q8H PRN for pain #90 tabs 08/16/21 fluticasone 100 mcg-salmeterol 50 1 ea PO BID #60 ea 10/13/21 mcg/dose blistr powdr for inhalation (Wixela Inhub) albuterol sulfate 90 mcg/actuation 2 puff PO Q4H PRN for wheezing 02/22/22 aerosol inhaler #8.5 grams empagliflozin 25 mg tablet 25 mg PO QAM 90 days #90 tabs 02/22/22 (Jardiance) flash glucose sensor (FreeStyle #6 kits 05/03/22 Tip 14 Day Sensor kit) docusate sodium 100 mg capsule 100 mg PO BEDTIME #90 caps 06/01/22 methylcellulose (laxative) 500 mg 500 mg PO DAILY #90 tabs 06/01/22 tablet (Citrucel) albuterol sulfate 90 mcg/actuation 2 puff inhalation Q4-6H PRN 08/08/22 aerosol inhaler shortness of breath or wheezing #6.7 grams benzonatate 100 mg capsule 100 mg PO TID PRN cough 5 days #15 08/08/22 caps prednisone 20 mg tablet 40 mg PO DAILY 5 days #10 tabs 08/08/22 Allergies Allergy/AdvReac Type Severity Reaction Status Date / Time metformin AdvReac Intermediate diarrhea Verified 06/01/22 14:30 Review of Systems Review of Systems: Coughing shortness of breath and wheezing. No lower extremity swelling, calf pain, coughing up blood, or chest pain. Denies pleurisy Yes all other systems are reviewed and are negative PMF Past Medical History Medical History Asthma Blood in stool Carotid stenosis Diarrhea, infectious, adult Diverticulosis Fatty liver History of renal calculi Hypercholesterolemia Hyperlipidemia LDL goal <70 Hypertension Osteoporosis Tubular adenoma Tubular adenoma of colon Type 2 diabetes mellitus with hyperglycemia Surgical History H/O colonoscopy History of surgery Family History Family History Mother No problems noted. Sister Pacemaker Brother No problems noted. Sister No problems noted. Son No problems noted. Daughter No problems noted. 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 Current occupational exposures/hazards: No Cognitive needs: No Hearing needs: No Vision needs: Yes (glasses ) Physical Exam ED Vital Signs: Vital Signs - 24 hr 08/08/22 10:25 08/08/22 10:36 08/08/22 12:25 Temperature 98.9 F 99 F Pulse Rate 112 H 112 H 78 Respiratory Rate 18 18 18 Blood Pressure 142/91 H 142/91 H Pulse Oximetry 94 94 Oxygen Delivery Method Room Air Room Air BMI result Body Mass Index 21.9 Const General: cooperative, healthy appearing, comfortable, no acute distress, well developed and alert Orientation/consciousness: oriented to person, oriented to place, oriented to time and patient oriented x3 HENMT Head: Yes normal to inspection, Yes No palpable skull fracture present, Yes normocephalic, Yes atraumatic and No abrasion Ears: hearing grossly normal bilaterally, external ears normal, EAC's normal, mastoids normal and no periauricular adenopathy Throat: Yes posterior oropharynx normal, Yes tonsils normal and Yes uvula midline Eyes General: appearance normal, both eyes and all related structures Neck Neck: Yes normal visual inspection, Yes full ROM, Yes no lymphadenopathy, Yes no meningeal signs, Yes trachea midline, Yes supple, No anterior neck swelling and No tender Chest Chest palpation & inspection: normal inspection of the chest and normal palpation of entire chest wall Resp Effort & Inspection: normal respiratory effort and able to speak in complete sentences Auscultation: wheezes expiratory wheezes and throughout Cardio Jugular venous distension: no JVD Heart sounds: S1 normal heart sound present and S2 normal heart sound present GI Inspection: Yes normal to inspection and No abdominal wall ecchymosis Palpation (GI): Soft to palpation, not firm, nontender, no guarding and not rigid General: No CVA tenderness and Yes no CVA tenderness Back/Spine/Pelvis Back: no CVA tenderness, No CVA tenderness and No back tenderness Skin General skin exam: no rashes or lesions noted and elasticity normal Neuro General: oriented to person, oriented to place, oriented to time, patient oriented x3, gait normal, tone normal and no meningeal signs Cranial nerves: Yes CN's II-XII intact bilaterally Extrem Other: Lower extremities negative for swelling, pitting edema, calf tenderness General: Yes normal to inspection and Yes full ROM Psych Appearance: grossly normal, well kempt and not disheveled Course Course Course Narrative: SARs albuterol inhaler prednisone and chest x-ray ordered. Reevaluation(s) Reevaluation #1: Positive influenza. X-ray normal. Patient well appearing Time: 12:56 Medications Administered Discontinued Medications Generic Name Dose Route Start Last Admin Trade Name Freq PRN Reason Stop Dose Admin Albuterol/Ipratropium 3 ml 08/08/22 11:39 08/08/22 12:25 Albuterol/Iprat 2.5/0.5mg 3 Ml Ampul.Neb INHALE 08/08/22 11:40 3 ml ONCE ONE Administration Prednisone 60 mg 08/08/22 11:39 08/08/22 11:45 Prednisone 20 Mg Tablet PO 08/08/22 11:40 60 mg ONCE ONE Administration Medical Decision Making MDM Narrative Medical decision making narrative: Positive flu. Symptoms for 3. Will not give Tamiflu. Lab Data Labs: Lab Results 08/08/22 Range/Units 10:44 Influenza Type A (PCR) POSITIVE A (Negative) Influenza Type B (PCR) NEGATIVE (Negative) RSV RNA Qual (PCR) NEGATIVE (Negative) SARS-CoV-2 RNA (RT-PCR) NEGATIVE (Negative) Discharge Plan Discharge Clinical Impression: Influenza A Patient Disposition: Home, Self-Care Instructions: Influenza (ED) Additional Instructions: You came back positive for the flu. Chest x-ray normal. Continue using albuterol inhaler at home. You be discharged with steroids and cough medication. Return to the ED immediately any shortness of breath, weakness, dizziness, leg swelling, calf pain, coughing up blood, chest pain inspiration, or any other concerning symptoms. Prescriptions: New prednisone 20 mg tablet 40 mg PO DAILY 5 Days Qty: 10 0RF benzonatate 100 mg capsule 100 mg PO TID PRN (Reason: cough) 5 Days Qty: 15 0RF albuterol sulfate 90 mcg/actuation HFA aerosol inhaler 2 puff inhalation Q4-6H PRN (Reason: shortness of breath or wheezing) Qty: 6.7 0RF No Action pantoprazole 20 mg tablet,delayed release (DR/EC) 20 mg PO DAILY Qty: 90 0RF atorvastatin 80 mg tablet 80 mg PO BEDTIME Qty: 90 0RF trazodone 50 mg tablet 50 mg PO BEDTIME Qty: 90 2RF ibuprofen 600 mg tablet 600 mg PO Q8H PRN (Reason: for pain) Qty: 90 0RF fluticasone propion-salmeterol [Wixela Inhub] 100-50 mcg/dose blister with device 1 ea PO BID Qty: 60 11RF albuterol sulfate 90 mcg/actuation HFA aerosol inhaler 2 puff PO Q4H PRN (Reason: for wheezing) Qty: 8.5 1RF Jardiance 25 mg tablet 25 mg PO QAM 90 Days Qty: 90 1RF (DME) FreeStyle Tip 14 Day Sensor Kit See Rx Instructions .ROUTE .MEDSUPPLY Qty: 6 3RF Rx Instructions: As directed multivitamin Tablet 1 tab PO DAILY aspirin 81 mg tablet,delayed release (DR/EC) 81 mg PO DAILY fluticasone propionate [Flonase Allergy Relief] 50 mcg/actuation spray,suspension 1 spray intranasal DAILY Rx Instructions: administer into each nostril cyanocobalamin (vitamin B-12) 1,000 mcg capsule 1,000 mcg PO DAILY ascorbic acid-elderberry fruit [Airborne (elderberry)] 100-50 mg tablet,chewable PO (DME) FreeStyle Tip 14 Day [place] Misc See Rx Instructions .ROUTE .MEDSUPPLY Qty: 1 0RF Rx Instructions: As directed (DME) blood pressure monitor [Blood Pressure Kit] Kit See Rx Instructions .ROUTE .MEDSUPPLY Qty: 1 0RF Rx Instructions: As directed lisinopril 5 mg tablet 5 mg PO DAILY 90 Days Qty: 90 2RF (DME) WRIST SPLINT (LEFT) small See Rx Instructions .Route .MEDSUPPLY Qty: 1 0RF Rx Instructions: As directed (DME) flash glucose sensor Kit See Rx Instructions topical DAILY Qty: 1 Rx Instructions: As directed glimepiride 2 mg tablet 2 mg PO DAILY docusate sodium 100 mg capsule 100 mg PO BEDTIME Qty: 90 3RF Citrucel 500 mg tablet 500 mg PO DAILY Qty: 90 2RF Rx Instructions: take it with full glass of water Stand Alone Forms: Work/School Release Interventions: ED Discharge Assessment Last Done: 08/08/22 13:05 Discharge Date/Time: 08/08/22 13:06 Print Language: Chinese
[2022-08-08] MEDS: predniSONE 20 MG TABLET 60 MG PO (11:45)
[2022-08-08 12:25] VITALS: PULSE 78; RESP 18; O2SAT 95
[2022-08-08] MEDS: Albuterol/Iprat 2.5/0.5MG 3 ML AMPUL.NEB INHALE (12:25)
== END 2022-08-08 13:06 | disposition home or self-care (01) ==
PROVIDERS: Emergency Provider Emergency Medicine; PCP Internal Medicine
DX: J10.1 Influenza due to other identified influenza virus with other respiratory manifestations (principal); R05.9 Cough, unspecified; R06.02 Shortness of breath; Z20.822 Contact with and (suspected) exposure to COVID-19; Z87.891 Personal history of nicotine dependence
CPT/HCPCS: 0241U; 71045; 94640; 99284

== ENCOUNTER 2022-10-02 11:07 | Outpatient (REF) | payer MEDICARE, OTHER, SELFPAY ==
--- NOTE | ~2022-10-02 | XR_ITS ---
EXAMINATION: XR CHEST CLINICAL INFORMATION: Asthma COMPARISON: Chest x-ray August 08, 2022 TECHNIQUE: 2 views of the chest were obtained. FINDINGS: Cardiac silhouette is normal in size. The lungs are well aerated. There is no lobar consolidation. No pleural effusion or pneumothorax. No acute osseous abnormality. XR/XR chest 2V IMPRESSION: No acute pulmonary pathology.
== END 2022-10-02 11:08 | disposition home or self-care (01) ==
LOC: HO.HMGCX 11:07
PROVIDERS: PCP Internal Medicine; Visit Provider Nurse Practitioner Family
DX: J45.901 Unspecified asthma with (acute) exacerbation (principal)
CPT/HCPCS: 71046

== ENCOUNTER 2022-10-16 08:32 | Outpatient (REF) | payer MEDICARE, OTHER, SELFPAY ==
--- NOTE | ~2022-10-16 | MM_ITS ---
EXAMINATION: MM SCREENING DIGITAL BREAST TOMOSYNTHESIS, BILATERAL CLINICAL INFORMATION: Screening. Asymptomatic. The lifetime risk of breast cancer based on the Tyrer-Cuzick Model is 4%. COMPARISON: Mammography: 10/15/2021, 07/17/2020, 02/21/2019 TECHNIQUE: Digital breast tomosynthesis is performed in both the craniocaudal and mediolateral oblique views along with computer-aided detection (CAD). Synthesized 2D images are generated from the tomosynthesis. FINDINGS: There are scattered areas of fibroglandular density (ACR BI-RADS breast composition Category b). There are no significant masses, abnormal calcifications, or other abnormalities. Breast tissue composition borders on predominantly fatty. Background stromal markings are similar to prior exams. No developing density or architectural abnormality. No significant changes. MM/MM tomosynthesis screening BI IMPRESSION: No mammographic evidence of malignancy. ASSESSMENT: BI-RADS 1: Negative RECOMMENDATION: Routine annual mammography screening. This patient's information was entered into a reminder system with a target due date for their next mammogram.
== END 2022-10-16 08:33 | disposition home or self-care (01) ==
LOC: HO.MAMMO 08:32
PROVIDERS: Visit Provider Internal Medicine
DX: Z12.31 Encounter for screening mammogram for malignant neoplasm of breast (principal)
CPT/HCPCS: 77063; 77067

== ENCOUNTER 2023-02-04 08:56 | Outpatient (REF) | payer MEDICARE, OTHER, SELFPAY ==
[2023-02-04 13:48] LABS: Influenza A PCR NEGATIVE (Negative); Influenza B PCR NEGATIVE (Negative); Resp Syncy Virus RNA Qual PCR NEGATIVE (Negative); SARS COV2 PCR INHOUSE NEGATIVE (Negative)
== END 2023-02-04 08:57 | disposition home or self-care (01) ==
LOC: HO.LNP 08:56
PROVIDERS: Visit Provider Nurse Practitioner Family
DX: Z20.822 Contact with and (suspected) exposure to COVID-19 (principal); R09.89 Other specified symptoms and signs involving the circulatory and respiratory systems
CPT/HCPCS: 0241U

== ENCOUNTER 2023-06-14 09:09 | Outpatient (AMB) | payer MEDICARE, OTHER, SELFPAY ==
[2023-06-14 11:11] VITALS: BP 130/82; PULSE 95; TEMP 36.6; O2SAT 95; BMI 22.9
--- NOTE | 2023-06-14 11:11 | MHC.OFFWIV ---
Intake Vital Signs 06/14/23 11:11 Height 5 ft 2 in Weight 125 lb BMI 22.9 BP 130/82 Blood Pressure Location Lt brachial Position Sitting Pulse 95 Pulse Source Pulse Oximeter Temp 97.8 F Temp Source Temporal Artery Scan Pulse Oximetry (%) 95 Intake Visit Reasons: EP Cold 3 weeks/Wheezing Intake Note: pt is here for c/o wheezing and cold for 3x weeks Patient Tobacco Use Status: Former Tobacco user Allergies metformin Adverse Reaction (Intermediate, Verified 06/14/23 11:11) diarrhea Do you need a note to return to daycare/school/sports/work: Yes HPI HPI Comments History of Present Illness Details 68-year-old female that presents for wheezing and shortness of breath. Patient has had a cold for approximately 3 weeks. She endorses a fever chills some tightness in her chest with deep inspiration and she feels mucus in her chest this should do no PFSH Medical History Asthma Blood in stool Carotid stenosis Diarrhea, infectious, adult Diverticulosis Fatty liver History of renal calculi Hypercholesterolemia Hyperlipidemia LDL goal <70 Hypertension Osteoporosis Tubular adenoma Tubular adenoma of colon Type 2 diabetes mellitus with hyperglycemia Surgical History H/O colonoscopy History of surgery Family History Mother No problems noted. Sister Pacemaker Brother No problems noted. Sister No problems noted. Son No problems noted. Daughter No problems noted. 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 Current occupational exposures/hazards: No Cognitive needs: No Hearing needs: No Vision needs: Yes (glasses ) Review of Systems Const All systems reviewed & are unremarkable except as noted in HPI and below Resp Reports chest congestion, Reports cough and Reports excessive phlegm production Physical Exam Vital Signs: Last Vital Signs Temp 97.8 F 06/14/23 11:11 Pulse 95 06/14/23 11:11 BP 130/82 06/14/23 11:11 Pulse Ox 95 06/14/23 11:11 BMI result Body Mass Index 22.9 Const General: healthy appearing, comfortable, no acute distress and alert Orientation/consciousness: patient oriented x3 Limitations: no limitations HEENT Head: Yes normal to inspection Ears: hearing grossly normal bilaterally Resp Other: rhonchi heard throughout Effort & Inspection: normal respiratory effort and able to speak in complete sentences Cardio Rate: regular rate Skin General skin exam: no rashes or lesions noted Neuro General: patient oriented x3 Extrem General: Yes normal to inspection Assessment & Plan Assessment & Plan (1) Bronchitis: Code(s): J40 - Bronchitis, not specified as acute or chronic Plan VSs. Exam patient's presents Alert and oriented no acute distress. Exam is notable for coarse rhonchi throughout. Exam is otherwise unremarkable note above for given his presentation consideration is bronchitis versus pneumonia Order chest x-ray. chest x-ray on my interpretation shows no acute abnormalities. Patient likely suffering from bronchitis will treat symptomatically with albuterol prednisone given history of asthma as well as rhonchi will consider Z-Mati Discharge instructions, follow up and treatment are discussed with patient in my usual fashion. Alternatives in treatment are also discussed. The patient will return for worsening symptoms or as needed. Advised that any labs/imaging ordered will be followed up on and contact made if further treatment needed. Counseled that patient's condition may require further evaluation and/or treatment. Symptoms of concern for worsening disorder discussed in detail in my customary manner. Patient does verbalize understanding of the plan, there are no apparent barriers to communication. The patient is given the opportunity to ask questions and have them answered to his/her satisfaction Orders: Orders XR chest 2V Today R05.9 - Cough, unspecified Medications: New azithromycin For 250 mg dose pack: take 500 mg today (day 1), then 250 mg for 4 days (days 2-5) PO 6 tabs 0RF prednisone 40 mg (2 x 20 mg) PO DAILY 5 days 10 tabs 0RF Coding Level of Care Code Est Pt Level 4 (01696) Diagnoses Bronchitis J40
== END 2023-06-14 11:55 | disposition home or self-care (01) ==
PROVIDERS: PCP Internal Medicine; Visit Provider Physician Assistant
DX: J40 Bronchitis, not specified as acute or chronic (principal)
CPT/HCPCS: 99214

== ENCOUNTER 2023-06-14 11:33 | Outpatient (REF) | payer MEDICARE, OTHER, SELFPAY | END 2023-06-14 11:34 | disposition home or self-care (01) | LOC: HO.HMGCX 11:33 | PROVIDERS: PCP Internal Medicine; Visit Provider Physician Assistant | DX: R05.9 Cough, unspecified (principal) | CPT/HCPCS: 71046 ==

== ENCOUNTER 2023-10-29 07:36 | Outpatient (REF) | payer MEDICARE, OTHER, SELFPAY | END 2023-10-29 07:37 | disposition home or self-care (01) | LOC: HO.MAMMO 07:36 | PROVIDERS: PCP Internal Medicine; Visit Provider Internal Medicine | DX: Z12.31 Encounter for screening mammogram for malignant neoplasm of breast (principal) | CPT/HCPCS: 77063; 77067 ==

== ENCOUNTER → 2023-10-29 07:45 | Outpatient (BNV) | payer MEDICARE, OTHER, SELFPAY | PROVIDERS: PCP Internal Medicine; Visit Provider Radiology Diagnostic Radiology | DX: Z12.31 Encounter for screening mammogram for malignant neoplasm of breast (principal) | CPT/HCPCS: 77063; 77067 ==

== ENCOUNTER 2023-11-17 15:54 | Outpatient (AMB) | payer MEDICARE, OTHER, SELFPAY ==
[2023-11-17 15:59] VITALS: BP 150/86; PULSE 96; O2SAT 98; BMI 23.0
--- NOTE | 2023-11-17 15:59 | A.OFFPC_ITS ---
Vital Signs 11/17/23 15:59 Height 5 ft 2 in Weight 126 lb BMI 23.0 BP 150/86 H Blood Pressure Location Lt brachial Position Sitting Pulse 96 Pulse Source Pulse Oximeter Pulse Oximetry (%) 98 Oxygen Delivery Method Room Air Intake Visit Reasons: Annual Exam Data Governance Consultant Required: No Shoe Repairman: Not Required per policy Accompanied by: Self / Same As Patient Allergies metformin Adverse Reaction (Intermediate, Verified 11/17/23 16:00) diarrhea Medication List - Last Reconciled 11/17/23 by Jeanne Godinez MD albuterol sulfate 90 mcg/actuation (Ventolin HFA) 2 puffs inhalation Q6H PRN ascorbic acid-elderberry fruit 100-50 mg (Airborne (elderberry)) tabs PO atorvastatin 80 mg PO BEDTIME blood pressure monitor (Blood Pressure Kit) As directed compressor, for nebulizer As directed updraft treatment Q 4 prn cyanocobalamin (vitamin B-12) 1,000 mcg PO DAILY empagliflozin (Jardiance) 25 mg PO QAM 30 days flash glucose scanning reader (LightTable Tip 2 [place]) As directed flash glucose sensor ([employer] Tip 2 Sensor kit) As directed flash glucose sensor As directed fluticasone propion-salmeterol 100-50 mcg/dose (Wixela Inhub) 1 ea PO BID fluticasone propionate 50 mcg/actuation (Flonase Allergy Relief) 1 spray intranasal DAILY ipratropium-albuterol 0.5 mg-3 mg(2.5 mg base)/3 mL 3 mL inhalation Q6H PRN 30 days lisinopril 5 mg PO DAILY 90 days multivitamin 1 tab PO DAILY nebulizer accessories As directed trazodone 50 mg PO BEDTIME PRN 90 days turmeric root extract 500 mg PO DAILY [WRIST SPLINT (LEFT) As directed] Tobacco use date assessed: 11/17/23 Fall risk assessment: No Falls in past year Last assessed Fall Risk: 11/17/23 Dental Screening Dental Screen Date: 11/17/23 Did you have a dental visit in the last 12 months?: No Did you have a dental problem in the last 6 months where you did not have access to dental care?: No Was dental information given to patient?: Patient has dentist HPI Annual Exam HPI Details 68-year-old female with diabetes mellitu s uncontrolled hyperch olesterolemia asthma hypertension last seen in November 2022. Patient's colonoscopy last done in December 2020 mammogram is up-to-date bone density due this year. Review of the notes had RSV vaccine, Urgent Care June 2023 for bronchitis did have the eye exam in September 2023 patient has been noncompliant. occ dizzy [facility] Medical History (Updated 11/17/23 @ 17:08 by Jeanne Godinez MD) URI (upper respiratory infection) Asthma exacerbation Extensor intersection syndrome of left wrist Osteoporosis Tubular adenoma Diverticulosis Hypertension Blood in stool Diarrhea, infectious, adult Hyperlipidemia LDL goal <70 Tubular adenoma of colon Hypercholesterolemia Type 2 diabetes mellitus with hyperglycemia Carotid stenosis Asthma History of renal calculi Fatty liver Surgical History H/O colonoscopy History of surgery Family History Mother No problems noted. Sister Pacemaker Brother No problems noted. Sister No problems noted. Son No problems noted. Daughter No problems noted. 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 1. Little interest or pleasure in doing things: not at all 2. Feeling down, depressed, or hopeless: not at all 3. Trouble falling or staying asleep, or sleeping too much: not at all 4. Feeling tired or having little energy: not at all 5. Poor appetite or overeating: not at all 6. Feeling bad about yourself - or that you are a failure or have let yourself or your family down: not at all 7. Trouble concentrating on things, such as reading the newspaper or watching television: not at all 8. Moving or speaking so slowly that other people could have noticed. Or the opposite - being so fidgety or restless that you have been moving around a lot more than usual: not at all 9. Thoughts that you would be better off or of hurting yourself in some way: not at all Total score: 0 Depression Screening Interpretation: Negative Depression Screening Done: Yes Source: Developed by Drs. Mat Baptiste, Kathy Armendariz, Arpan Lewis and colleagues, with an educational china from [employer]. Thrive Questionnaire Date Thrive assessed: 11/17/23 I am a: Patient What is your living situation today?: I have a steady place to live Within the past 12 months, did the food you bought not last and you didn't have the money to get more?: Never true Within the past 12 months, did you worry whether your food would run out before you got money to buy more?: Never true Do you have trouble paying for medicines?: No Do you have trouble getting transportation to medical appointments?: No Do you have trouble paying your heating and electricity bill?: No Do you have trouble taking care of your child, family member or friend?: No Do you have trouble with day-to-day activities such as bathing, preparing meals, shopping, managing finances, etc.?: No Are you currently unemployed and looking for a job?: No Are you interested in more education?: No Please select the resources that you would like help with: None THRIVE Score: 0 AUDIT C Alcohol Use Questionnaire (AUDIT-C) 1. How often do you have a drink containing alcohol?: Never 3. How often do you have six or more drinks on one occasion?: Never Total Score: 0 Score Reviewed/Action Taken: No CHELI-7 AMB Questionnaire CHELI-7 Date CHELI - 7 assessed: 11/17/23 Feeling nervous, anxious, or on edge: 0 = Not at all Not being able to stop or control worryin = Not at all Worrying too much about different things: 0 = Not at all Trouble relaxin = Not at all Being so restless that it is hard to sit still: 0 = Not at all Becoming easily annoyed or irritable: 0 = Not at all Feeling afraid as if something awful might happen: 0 = Not at all Total CHELI-7 score (0-4 normal; 5-9 mild; 10-14 moderate; 15-21 severe): 0 Source: Developed by Drs. Mat Baptiste, Kathy Armendariz, Arpan Lewis and colleagues, with an educational china from [employer]. Review of Systems Const Denies poor appetite and Denies weakness Eyes Denies no additional complaints ENT Reports Normal hearing present, Denies dizziness, Denies nasal congestion, Denies tinnitus and Denies sore throat Card Denies chest pain, Denies syncope, Denies rapid heart rate and Denies dyspnea Resp Denies cough and Denies dyspnea GI Denies change in stool character, Reports constipation, Denies diarrhea, Denies nausea and Denies vomiting Denies urinary frequency, Denies difficulty voiding and Denies dysuria Neuro Reports Normal hearing present, Denies confusion, Denies dizziness, Denies syncope and Denies weakness Psych Denies confusion Physical exam (Primary Care) Vital Signs: Last Vital Signs Pulse 96 11/17/23 15:59 BP 150/86 H 11/17/23 15:59 Pulse Ox 98 11/17/23 15:59 Oxygen Delivery Method Room Air 11/17/23 15:59 BMI result Body Mass Index 23.0 Tobacco/Smoking Status: Tobacco use Status Tobacco use date assessed 11/17/23 11/17/23 16:01 Patient Tobacco Use Status Former Tobacco user 11/17/23 16:01 Tobacco use type Cigarette 11/17/23 16:01 e-Cigarette/Vaping Use Never Used 11/17/23 16:01 PHQ-9: PHQ-9 Score PHQ-9: Total score 0 11/17/23 16:12 Depression Screening Interpretation: Negative Thrive Assessment: Date of Thrive Assessment Date Thrive assessed 11/17/23 11/17/23 16:01 Const General: No confusion Orientation/consciousness: No confusion HENMT Head: Yes normocephalic Ears: external ears normal and TM's normal bilaterally Face and sinus: Yes normal facial exam Mouth: moist mucous membranes Throat: Yes tonsils normal Eyes Conjunctivae: conjunctivae normal Pupils: Equal, round and reactive pupils present and Pupil accommodation reflex normal Direct Ophthalmoscopy: normal light reflex Neck Neck: No lymphadenopathy Thyroid: Thyroid normal Chest Chest palpation & inspection: normal inspection of the chest Resp Effort & Inspection: normal respiratory effort and no audible wheezes Auscultation: clear to auscultation bilaterally, no crackles, no wheezes and l kay sounds not diminished Cardio Rate: regular rate Rhythm: regular rhythm Peripheral pulses: radial pulses present and dorsalis pedis present GI Palpation (GI): no masses Auscultation: normal bowel sounds and normoactive bowel sounds Rectal Exam - Female: deferred Skin General skin exam: no rashes or lesions noted Rashes: no rashes Neuro General: No confusion Cranial nerves: Yes Equal, round and reactive pupils present and Yes Normal hearing present Cognition (Neuro): normal cognition Gait exam (Neuro): Normal gait present Motor exam (neuro): 5/5 motor strength present throughout Deep tendon reflexes (DTR's): Right brachioradialis reflex intensity grade: 2+, Left brachioradialis reflex intensity grade: 2+, Right patellar reflex intensity grade: 2+ and Left patellar reflex intensity grade: 2+ Extrem General: No edema Results AMB Hemoglobin A1c AMB Hemoglobin A1c 9.7 % Last Edit by JOSEE Trujillo on 11/17/23 16:13 Results Reviewed Results Reviewed: Laboratory Last Values Hgb A1c (Clinic) 9.7 % (4.0-6.0) H 11/17/23 16:01 Assessment and Plan Assessment & Plan (1) Type 2 diabetes mellitus with hyperglycemia: Code(s): E11.65 - Type 2 diabetes mellitus with hyperglycemia Qualifiers: Diabetes mellitus exterminator helper insulin use: without exterminator helper use Qualified Code(s): E11.65 - Type 2 diabetes mellitus with hyperglycemia Plan: Decrease the amount of carbohydrate intake, pasta, bread, rice and potatoes are all sugar and that is aside from all the sweet stuff, remember that fruits are good but they are Sweet also. Hemoglobin A1c goal of less than 7.0 presently on Jardiance 25 mg once a day (2) Annual physical exam: Code(s): Z00.00 - Encounter for general adult medical examination without abnormal findings (3) Hypertension: Code(s): I10 - Essential (primary) hypertension Qualifiers: Hypertension type: unspecified Qualified Code(s): I10 - Essential (primary) hypertension Plan: Continue with blood pressure medication. Decrease salt intake and exercise patient takes lisinopril 5 mg once a day (4) Hypercholesterolemia: Code(s): E78.00 - Pure hypercholesterolemia, unspecified Plan: Avoid fried foods, chicken skin, eggs, butter margarine, pastries and meat. Be it pork or beef they have a lot of cholesterol LDL goal of less than 100 and triglyceride of less than 150 on atorvastatin 80 mg once a day (5) Asthma: Code(s): J45.909 - Unspecified asthma, uncomplicated Qualifiers: Asthma severity: mild Asthma persistence: intermittent Asthma complication type: uncomplicated Qualified Code(s): J45.20 - Mild intermittent asthma, uncomplicated Plan: Continue with the inhalers has Ventolin and Wixela (6) Cervical cancer screening: Code(s): Z12.4 - Encounter for screening for malignant neoplasm of cervix (7) Osteopenia: Code(s): M85.80 - Other specified disorders of bone density and structure, unspecified site Orders: Orders Complete Blood Count Auto Diff Today E11.65 - Type 2 diabetes mellitus with hyperglycemia Thyroid Stimulating Hormone Today E11.65 - Type 2 diabetes mellitus with hyperglycemia Lipid Panel Today E11.65 - Type 2 diabetes mellitus with hyperglycemia, E78.00 - Pure hypercholesterolemia, unspecified Vitamin D 25-OH Total Today E11.65 - Type 2 diabetes mellitus with hyperglycemia Microalbumin, Random (w Creat) Today E11.65 - Type 2 diabetes mellitus with hyperglycemia AMB Hemoglobin A1c Today E11.65 - Type 2 diabetes mellitus with hyperglycemia Comprehensive Met. Panel Today E11.65 - Type 2 diabetes mellitus with hyperglycemia Free T4 (Free Thyroxine) Today E11.65 - Type 2 diabetes mellitus with hyperglycemia Vitamin B12 and Folate Today E11.65 - Type 2 diabetes mellitus with hyperglycemia Creatinine Urine Today E11.65 - Type 2 diabetes mellitus with hyperglycemia XR DEXA axial skeleton Today M81.0 - Age-related osteoporosis without current pathological fracture, M85.80 - Other specified disorders of bone density and structure, unspecified site Referrals TELECOM BILLING ANALYST Referral Z12.4 - Encounter for screening for malignant neoplasm of cervix Government Affairs Specialist Nutrition Referral E11.65 - Type 2 diabetes mellitus with hyperglycemia Medications: New glipizide ER 5 mg PO DAILY 30 tabs 2RF E11.65 - Type 2 diabetes mellitus with hyperglycemia Coding Level of Care Code Est Pt Prev Care >65y(83872) Diagnoses Type 2 diabetes mellitus with hyperglycemia, without long-term current use of insulin E11.65 Diabetes mellitus exterminator helper insulin use: without longterm use Annual physical exam Z00.00 Hypertension, unspecified type I10 Hypertension type: unspecified Hypercholesterolemia E78.00 Mild intermittent asthma without complication J45.20 Asthma severity: mild Asthma persistence: intermittent Asthma complication type: uncomplicated Cervical cancer screening Z12.4 Osteopenia M85.80 Additional Codes PHQ-9 - 67378 - PHQ-9 Billing: ([id number])
== END 2023-11-17 16:53 | disposition home or self-care (01) ==
PROVIDERS: Visit Provider Internal Medicine
DX: Z00.00 Encounter for general adult medical examination without abnormal findings (principal); E11.65 Type 2 diabetes mellitus with hyperglycemia; I10 Essential (primary) hypertension; E78.00 Pure hypercholesterolemia, unspecified; J45.20 Mild intermittent asthma, uncomplicated; M85.80 Other specified disorders of bone density and structure, unspecified site
CPT/HCPCS: 83036; 99397

== ENCOUNTER 2023-11-22 08:08 | Outpatient (REF) | payer MEDICARE, OTHER, SELFPAY ==
[2023-11-22 14:06] LABS: MANUAL DIFF FLAG NO
[2023-11-22 14:09] LABS: Basophils Percent Auto 0.5 % (0-2); Eosinophils Absolute Auto 0.2 X10*3/uL (0.0-0.4); Eosinophils Percent Auto 3.1 % (0-4); Hematocrit 43.5 % (37.0-47.0); Hemoglobin 14.5 g/dl (12.0-16.0); Imm Gran Abs Auto 0.01 X10*3/uL (0.00-0.03); Imm Gran Pct Auto 0.2 % (0.0-0.4); Lymphocytes Absolute Auto 2.4 X10*3/uL (1.2-4.9); Lymphocytes Percent Auto 42.2 % (20-40); Mean Corpuscular HGB Conc 33.3 g/dl (31.0-35.0); Mean Corpuscular Hemoglobin 30.6 pg (27.0-33.0); Mean Corpuscular Volume 91.8 fL (80.0-98.0); Mean Platelet Volume 11.3 fL (9.4-12.3); Monocytes Absolute Auto 0.4 X10*3/uL (0.1-1.2); Monocytes Percent Auto 7.9 % (2-11); Neutrophils Absolute Auto 2.6 x10*3/uL (2.0-8.3); Neutrophils Percent Auto 46.1 % (45-73); Platelet Count 267 X10*3/uL (160-400); Red Blood Count 4.74 X10*6/uL (4.20-5.50); Red Cell Distribution Width 11.9 % (11.0-16.0); White Blood Count 5.6 X10*3/uL (4.8-10.8)
[2023-11-22 14:49] LABS: Creatinine Urine 61.42 mg/dL; Microalbumin Urine < 5.0 mg/L
[2023-11-22 15:03] LABS: Alanine Aminotransferase 22 U/L (0-31); Albumin Level 4.1 g/dL (3.5-5.0); Alkaline Phosphatase 94 U/L (39-117); Anion Gap 13 (12-20); Aspartate Amino Transferase 16 U/L (5-31); Bilirubin Total 0.5 mg/dL (0.0-1.0); Blood Urea Nitrogen 12 mg/dL (9-16); Calcium 9.2 mg/dL (8.4-10.2); Carbon Dioxide 27 mmol/L (22-29); Chloride 105 mmol/L (96-108); Cholesterol 177 mg/dL (<200); Estimated Glomerular Filt Rate > 60; Glucose Random 149 mg/dL (60-115); HDL Cholesterol 44 mg/dL (>40); LDL Cholesterol Calculated 113 mg/dL (<100); Potassium 5.1 mmol/L (3.3-5.1); Sodium 140 mmol/L (135-145); Total Protein 6.8 g/dL (6.5-8.0); Triglycerides 103 mg/dL (<150)
[2023-11-22 15:23] LABS: Free T4 (Free Thyroxine) 1.06 ng/dL (0.71-1.85); Vitamin D 25-OH Total 45.9 ng/mL (>30)
[2023-11-22 15:24] LABS: Vitamin B12 1936 pg/mL (200-900)
== END 2023-11-22 08:09 | disposition home or self-care (01) ==
LOC: HO.CHCLDS 08:08
PROVIDERS: Visit Provider Internal Medicine
DX: E11.65 Type 2 diabetes mellitus with hyperglycemia (principal); E78.00 Pure hypercholesterolemia, unspecified
CPT/HCPCS: 36415; 80053; 80061; 82043; 82306; 82570; 82607; 82746; 84439; 84443; 85025

== ENCOUNTER 2024-01-03 08:20 | Outpatient (AMB) | payer MEDICARE, OTHER, SELFPAY ==
--- NOTE | 2024-01-03 08:29 | MHC.AMNUTRGE ---
Intake VS Expanded 01/03/24 08:31 01/03/24 08:51 Height 5 ft 2 in 5 ft 2 in Weight 128 lb 1.417 oz 128 lb BMI 23.4 23.4 Intake Visit Reasons: DM2 Allergies metformin Adverse Reaction (Intermediate, Verified 11/17/23 16:00) diarrhea HPI Nutrition Presentation Details Pt presents for MNT for T2DM with hyperglycemia, with A1c 9.7% 11/2023. Pt was referred by Dr. Godinez, PCP. Pt has questions regarding meal planning and food combinations to prevent spikes in blood glucose. Typical meal intake: B : coffee with sugar free cream/reg or may have oatmeal and bagel with cream cheese L: eyal bread with ham/cheese, or a salad or may skip it D: pasta with sauce, and bagel, water Reports having water or sugar free beverages with meals. ETOH: wine 1-2 month Reports starting to walk for 20 minutes for the past 2 weeks DM meds: now on Glipizide ER 5 mg /day BG meter: unable to download , 14 d bg average at 225 mg/d, bg ranging from 139-200s RZP-Upkfshk-Nc.Jeor Equation Height 5 ft 2 in Weight 128 lb Resting Metabolic Rate 1068.71 Calculated Activity Level Mild Activity Calories Needed to Maintain Weight 1469.48 Diagnosis Nutrition problem #1 excessive energy intake As related to (etiology) #1 diagnosis As evidenced by (sign/symptom) #1 elevated HgbA1c Monitoring/Goals Nutrition problem monitoring HgbA1c, level of knowledge/skill, total PRO intake, total CHO intake and oral fluids Nutrition goal/outcome list 3 CHO foods Outcome progress verbalized understanding Learning/Education Readiness to learn good Most Recent Diabetes Results: Microalb/Creat Ratio TNP 11/22/23 Cholesterol 177 mg/dL (<200) 11/22/23 HDL Cholesterol 44 mg/dL (>40) 11/22/23 Triglycerides 103 mg/dL (<150) 11/22/23 Creatinine 0.79 mg/dL (0.5-1.4) 11/22/23 Blood Urea Nitrogen 12 mg/dL (9-16) 11/22/23 Sodium 140 mmol/L (135-145) 11/22/23 Potassium 5.1 mmol/L (3.3-5.1) 11/22/23 Chloride 105 mmol/L (96-108) 11/22/23 Carbon Dioxide 27 mmol/L (22-29) 11/22/23 Calcium 9.2 mg/dL (8.4-10.2) 11/22/23 AST 16 U/L (5-31) 11/22/23 ALT 22 U/L (0-31) 11/22/23 Total Protein 6.8 g/dL (6.5-8.0) 11/22/23 Albumin 4.1 g/dL (3.5-5.0) 11/22/23 [facility] Medical History (Updated 11/17/23 @ 17:08 by Jeanne Godinez MD) URI (upper respiratory infection) Asthma exacerbation Extensor intersection syndrome of left wrist Osteoporosis Tubular adenoma Diverticulosis Hypertension Blood in stool Diarrhea, infectious, adult Hyperlipidemia LDL goal <70 Tubular adenoma of colon Hypercholesterolemia Type 2 diabetes mellitus with hyperglycemia Carotid stenosis Asthma History of renal calculi Fatty liver Surgical History H/O colonoscopy History of surgery Family History Mother No problems noted. Sister Pacemaker Brother No problems noted. Sister No problems noted. Son No problems noted. Daughter No problems noted. 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 Current occupational exposures/hazards: No Cognitive needs: No Hearing needs: No Vision needs: Yes (glasses ) Assessment & Plan Assessment & Plan (1) Type 2 diabetes mellitus with hyperglycemia: Code(s): E11.65 - Type 2 diabetes mellitus with hyperglycemia Qualifiers: Diabetes mellitus jail insulin use: without terminal operations supervisor use Qualified Code(s): E11.65 - Type 2 diabetes mellitus with hyperglycemia Plan: Wt: 58 Kg ( 01/2024 ) Est kcal needs as per MSJ: 1500 (40% carb, 30% protein/fat) Est fluid needs as per 25-30 ml/d:1700 Est prot per day as per 1 g/kg bw: 58 Recommend fiber intake : 8-10 g per day and gradually increase to 25-28 g per day for women and 35-38 g for men or as tolerated Recommend sodium intake per day : less than 1500 mg less than 2000 mg Educated patient on: ( R = reviewed V = verbalizes understanding N/R = needs review N/A = not applicable Food sources of carbohydrate, adequate serving sizes and its role in various health conditions: R V Differences between complex carbohydrates a simple carbohydrates, role of fiber in diet: R Lean protein sources of foods: R Differences between types of fats and role in diet (mono on saturated fat fatty acids, saturated fatty acids, trans fats): N/R Food sources of sodium in salt and healthy modifications for heart health in kidney health: N/R Vitamins and minerals: N/R Healthy plate method concept: R Physical activity: Benefits a precaution: R Hypoglycemia protocol (rule of 15): N/R Dietary prevention of Hyperglycemia: R Patient Instructions: Work on having 3 balanced meals per day following healthy plate method Reduce your total carb at meal to 45 g and 0-20 g carb as snack if need it Have a yogurt/fruit in place of pastries keep physically active as established Coding Level of Care Code Nutr Indiv Intake (87754) Diagnoses Type 2 diabetes mellitus with hyperglycemia, without long-term current use of insulin E11.65 Diabetes mellitus jail insulin use: without terminal operations supervisor use Time Spent (min) 30
[2024-01-03 08:31] VITALS: BMI 23.4
[2024-01-05 09:29] VITALS: BMI 23.4
== END 2024-01-03 09:24 | disposition home or self-care (01) ==
PROVIDERS: PCP Internal Medicine; Visit Provider Dietitian, Registered
DX: E11.65 Type 2 diabetes mellitus with hyperglycemia (principal)

== ENCOUNTER → 2024-01-03 08:20 | Outpatient (BNVA) | payer MEDICARE, OTHER, SELFPAY | PROVIDERS: PCP Internal Medicine; Visit Provider Dietitian, Registered | DX: E11.65 Type 2 diabetes mellitus with hyperglycemia (principal) | CPT/HCPCS: 97802 ==

== ENCOUNTER 2024-01-04 14:16 | Outpatient (REF) | payer MEDICARE, OTHER, SELFPAY ==
--- NOTE | ~2024-01-04 | MM_ITS ---
EXAMINATION: BONE DENSITOMETRY CLINICAL INDICATION: Age-related osteoporosis without current pathological fracture. COMPARISON: Previous BD dated 10/23/2021 and baseline BD dated 08/20/2010. TECHNIQUE: Using a [employer] DXA System (software version: 13.1) manufactured by [employer], dual-energy x-ray absorptiometry was performed of the lumbar spine and left hip. The images are of good technical quality. Summary results are attached. FINDINGS: LEFT FEMUR, NECK: Current: BMD 0.784 g/cm2, Z-score 0.0, T-score -1.8, osteopenia. Prior: BMD 0.757 g/cm2. Baseline: BMD 0.821 g/cm2. LEFT FEMUR, TOTAL: Current: BMD 0.863 g/cm2, Z-score 0.4, T-score -1.1, osteopenia, 3.4% increase from previous, 5.1% decrease from baseline (<5% change is not significant). Prior: BMD 0.835 g/cm2. Baseline: BMD 0.909 g/cm2. AP SPINE L1-L4: Current: BMD 0.999 g/cm2, Z-score 0.4, T-score -1.5, osteopenia, 0.4% increase from previous, 2.9% increase from baseline (<5% change is not significant). Prior: BMD 0.995 g/cm2. Baseline: BMD 0.971 g/cm2. IDENTIFIED RISK FACTORS: Menopause, osteoporosis. HISTORY OF FRACTURE: None listed. MEDICATIONS: Multivitamin, vitamin D. MM/XR DEXA axial skeleton IMPRESSION: 1. DIAGNOSIS: Osteopenia based on the lowest T-score value of -1.8 in the femoral neck applying World Health Organization criteria. 2. 10-YEAR FRACTURE RISK PREDICTION, FRAX: Major osteoporotic fracture (clinical spine, forearm, hip or shoulder) 6.0%. Hip fracture 1.0%. 3. Treatment Recommendations: NOF guidelines recommend consideration for treatment in postmenopausal women and men age 50 and older presenting with the following: -A hip or vertebral (clinical or morphometric) fracture. -T-score less than or equal to -2.5 at the femoral neck or spine after appropriate evaluation to exclude secondary causes. -Low bone mass at the hip or spine and a 10-year fracture probability by FRAX of greater than or equal to 3% for hip fracture or greater than or equal to 20% for major osteoporotic fracture based on the [place] adapted WHO algorithm. 4. Other Recommendations: All treatment decisions require clinical judgment and consideration of individual patient factors, including patient preferences, comorbidities, previous drug use, risk factors not captured in the FRAX model (e.g. frailty, falls, vitamin D deficiency, increased bone turnover, interval significant decline in bone density) and possible under or overestimation of fracture risk by FRAX. Additional medical evaluation for secondary cause of low bone mineral density may be appropriate. FUTURE SCAN RECOMMENDATION: People with diagnosed cases of osteoporosis or at high risk for fracture should have regular bone mineral density tests. For patients eligible for Medicare, routine testing is allowed once every 2 years. The testing frequency can be increased to one year for patients who have rapidly progressing disease, those who are receiving or discontinuing medical therapy to restore bone mass, or have additional risk factors.
== END 2024-01-04 14:17 | disposition home or self-care (01) ==
LOC: HO.MAMMO 14:16
PROVIDERS: PCP Internal Medicine; Visit Provider Internal Medicine
DX: Z13.820 Encounter for screening for osteoporosis (principal); M81.0 Age-related osteoporosis without current pathological fracture; M85.80 Other specified disorders of bone density and structure, unspecified site; Z78.0 Asymptomatic menopausal state
CPT/HCPCS: 77080

== ENCOUNTER 2024-02-27 13:49 | Outpatient (AMB) | payer MEDICARE, OTHER, SELFPAY ==
--- NOTE | 2024-02-27 14:09 | A.OFFVIS_ITS ---
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 No complaints. Last Pap/HPV was negative in 01/20, this was preceded with multiple negative co testing in Pap smear last 10 years Last Mammogram was BI-RADS 1 in 10/29 Last Colonoscopy was in 02/23, the recommendation was to repeat in 3-5 years Last DEXA scan was in 01/26, the patient was in the low risk category with no evidence of osteoporosis PFSH Medical History URI (upper respiratory infection) Asthma exacerbation Extensor intersection syndrome of left wrist Osteoporosis Tubular adenoma Diverticulosis Hypertension Blood in stool Diarrhea, infectious, adult Hyperlipidemia LDL goal <70 Tubular adenoma of colon Hypercholesterolemia Type 2 diabetes mellitus with hyperglycemia Carotid stenosis Asthma History of renal calculi Fatty liver Surgical History H/O colonoscopy History of surgery Family History Mother No problems noted. Sister Pacemaker Brother No problems noted. Sister No problems noted. Son No problems noted. Daughter No problems noted. 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 Current occupational exposures/hazards: No Cognitive needs: No Hearing needs: No Vision needs: Yes (glasses ) Female Reproductive History Menstrual Menopause type: natural Total pregnancies: 4 Full term: 2 Number of Living Children: 2 Ab induced: 2 Date of last pap smear: 02/01/18 Date of Mammogram: 10/29/23 Date of last Bone Density Screenin01/04/24 Review of Systems Const All systems reviewed & are unremarkable except as noted in HPI and below Card Reports as per HPI Resp Reports as per HPI GI Reports as per HPI and Reports no additional complaints Reports as per HPI Physical Exam Vital Signs: Last Vital Signs BP 124/80 02/27/24 14:10 BMI result Body Mass Index 23.4 Const General: cooperative, healthy appearing and comfortable Chest Chest palpation & inspection: normal inspection of the chest and normal palpation of entire chest wall Breast/axilla inspection: normal inspection of the breasts and normal inspection of the axillae Breast/axilla palpation: normal palpation of the breasts, normal palpation of the axillae and no axillary lymphadenopathy Resp Effort & Inspection: normal respiratory effort Auscultation: clear to auscultation bilaterally Percussion: percussion normal Cardio Palpation: normal PMI Rate: regular rate Rhythm: regular rhythm Heart sounds: no murmurs and no rubs Peripheral pulses: Peripheral pulses 2+ throughout GI Inspection: Yes normal to inspection Palpation (GI): Soft to palpation, nontender, no guarding, not rigid and No hepatosplenomegaly present Percussion: Yes normal to percussion Auscultation: normal bowel sounds Rectal Exam - Female: deferred General: Yes bladder normal to palpation External Female Exam: No lesion Speculum Exam - Vagina: normal appearance of the vagina, normal palpation, normal vaginal discharge and not erythematous Speculum Exam - Cervix: normal appearance of the cervix and normal palpation Bimanual exam- vagina & uterus: normal bimanual exam, normal palpation, uterine size normal, bladder normal to palpation, consistency normal and normal palpation Bimanual Exam- Adnexa, other: normal adnexae, no masses and no tenderness Assessment & Plan Assessment & Plan (1) Well woman exam: Code(s): Z01.419 - Encounter for gynecological examination (general) (routine) without abnormal findings Category: Medical Plan: Co testing not indicated since the patient 's age is above 65 with no history of abnormal Pap smears last 25 years. Counseled the patient about the recommended dietary allowance of 1200 mg of Calcium & 800 IU of vitamin D. Instructions given the patient to schedule next screening Mammogram in 10/30. Referred the patient to GI for screening colonoscopy . The patient was instructed to perform monthly self-breast exams and to schedule an annual exam in a year; All questions answered and the patient verbalized understanding. Orders: Referrals Gastroenterology Referral Z12.11 - Encounter for screening for malignant neoplasm of colon Coding Level of Care Code New Pt Prev Care >65yr (97753) Diagnoses Well woman exam Z01.419
[2024-02-27 14:10] VITALS: BP 124/80; BMI 23.4
== END 2024-02-27 14:46 | disposition home or self-care (01) ==
PROVIDERS: PCP Internal Medicine; Visit Provider Obstetrics & Gynecology
DX: Z01.419 Encounter for gynecological examination (general) (routine) without abnormal findings (principal)
CPT/HCPCS: G0101

== ENCOUNTER → 2024-02-27 13:49 | Outpatient (BNVA) | payer MEDICARE, OTHER, SELFPAY | PROVIDERS: PCP Internal Medicine; Visit Provider Obstetrics & Gynecology | DX: Z01.419 Encounter for gynecological examination (general) (routine) without abnormal findings (principal) | CPT/HCPCS: G0101 ==

== ENCOUNTER 2024-11-21 15:39 | Outpatient (AMB) | payer MEDICARE, OTHER, SELFPAY ==
--- NOTE | 2024-11-21 15:43 | A.OFFPC_ITS ---
Vital Signs 11/21/24 15:45 Height 5 ft 2 in Weight 132 lb 4 oz BMI 24.2 BP 132/70 Blood Pressure Location Lt brachial Position Sitting Pulse 105 H Pulse Source Pulse Oximeter Temp 97.5 F Temp Source Temporal Artery Scan Pulse Oximetry (%) 96 Oxygen Delivery Method Room Air Intake Visit Reasons: annual exam Intake Note: Patient is here today for a physical. Clinical Cytogenetics Director Required: No Fitness Studies Teacher: Not Required per policy Accompanied by: Self / Same As Patient Allergies metformin Adverse Reaction (Intermediate, Verified 11/21/24 15:44) diarrhea Medication List - Last Reconciled 11/21/24 by Jeanne Godinez MD albuterol sulfate 90 mcg/actuation (Ventolin HFA) 2 puffs inhalation Q6H PRN ascorbic acid (vitamin C) mg PO ascorbic acid-elderberry fruit 100-50 mg (Airborne (elderberry)) tabs PO atorvastatin 80 mg PO BEDTIME blood pressure monitor (Blood Pressure Kit) As directed blood sugar diagnostic (FreeStyle Test strips) As directed blood sugar diagnostic (OneTouch Ultra Test strips) As directed blood-glucose meter (FreeStyle System Kit) As directed blood-glucose meter,continuous ([employer]Style Tip 3 [place]) As directed blood-glucose sensor (FreeStyle Tip 3 Plus Sensor device) As directed cholecalciferol (vitamin D3) 50 mcg PO DAILY compressor, for nebulizer As directed updraft treatment Q 4 prn fluticasone propion-salmeterol 100-50 mcg/dose (Wixela Inhub) 1 ea PO BID fluticasone propionate 50 mcg/actuation (Flonase Allergy Relief) 1 spray intranasal DAILY glipizide ER 5 mg PO DAILY ipratropium-albuterol 0.5 mg-3 mg(2.5 mg base)/3 mL 3 mL inhalation Q6H PRN 30 days lancets (Comfort EZ Lancets) As directed lancets (FreeStyle Lancets) As directed lisinopril 5 mg PO DAILY 90 days multivitamin 1 tab PO DAILY nebulizer accessories As directed trazodone 50 mg PO BEDTIME PRN 90 days turmeric root extract 500 mg PO DAILY ubidecarenone-omega 3-vit E 25-150-200 mg-mg-unit (Co L-55-Zxfhuuy E-Fish Oil) 1 cap PO DAILY [WRIST SPLINT (LEFT) As directed] Tobacco use date assessed: 11/21/24 Fall risk assessment: No Falls in past year Last assessed Fall Risk: 11/21/24 Dental Screening Dental Screen Date: 11/21/24 Did you have a dental visit in the last 12 months?: No Did you have a dental problem in the last 6 months where you did not have access to dental care?: No Was dental information given to patient?: Patient has dentist [facility] Medical History URI (upper respiratory infection) Asthma exacerbation Extensor intersection syndrome of left wrist Osteoporosis Tubular adenoma Diverticulosis Hypertension Blood in stool Diarrhea, infectious, adult Hyperlipidemia LDL goal <70 Tubular adenoma of colon Hypercholesterolemia Type 2 diabetes mellitus with hyperglycemia Carotid stenosis Asthma History of renal calculi Fatty liver Surgical History H/O colonoscopy History of surgery Family History Mother No problems noted. Sister Pacemaker Brother No problems noted. Sister No problems noted. Son No problems noted. Daughter No problems noted. 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 1. Little interest or pleasure in doing things: not at all 2. Feeling down, depressed, or hopeless: not at all 3. Trouble falling or staying asleep, or sleeping too much: not at all 4. Feeling tired or having little energy: not at all 5. Poor appetite or overeating: not at all 6. Feeling bad about yourself - or that you are a failure or have let yourself or your family down: not at all 7. Trouble concentrating on things, such as reading the newspaper or watching television: not at all 8. Moving or speaking so slowly that other people could have noticed. Or the opposite - being so fidgety or restless that you have been moving around a lot more than usual: not at all 9. Thoughts that you would be better off or of hurting yourself in some way: not at all Total score: 0 Depression Screening Interpretation: Negative Depression Screening Done: Yes Source: Developed by Drs. Mat Baptiste, Kathy Armendariz, Arpan Lewis and colleagues, with an educational china from [employer] Thrive Questionnaire Date Thrive assessed: 11/21/24 I am a: Patient What is your living situation today?: I have a steady place to live Within the past 12 months, did the food you bought not last and you didn't have the money to get more?: I choose not to answer this question Within the past 12 months, did you worry whether your food would run out before you got money to buy more?: I choose not to answer this question Do you have trouble paying for medicines?: No Do you have trouble getting transportation to medical appointments?: No Do you have trouble paying your heating and electricity bill?: No Do you have trouble taking care of your child, family member or friend?: No Do you have trouble with day-to-day activities such as bathing, preparing meals, shopping, managing finances, etc.?: No Are you currently unemployed and looking for a job?: No Are you interested in more education?: No Please select the resources that you would like help with: None Currently or been in a relationship where the following occur: I choose not to answer THRIVE Score: 0 AUDIT C Alcohol Use Questionnaire (AUDIT-C) 1. How often do you have a drink containing alcohol?: Monthly or less 2. How many drinks containing alcohol do you have on a typical day when you are drinking?: 1 or 2 3. How often do you have six or more drinks on one occasion?: Never Total Score: 1 CHELI-7 AMB Questionnaire CHELI-7 Date CHELI - 7 assessed: 11/21/24 Feeling nervous, anxious, or on edge: 0 = Not at all Not being able to stop or control worryin = Not at all Worrying too much about different things: 0 = Not at all Trouble relaxin = Not at all Being so restless that it is hard to sit still: 0 = Not at all Becoming easily annoyed or irritable: 0 = Not at all Feeling afraid as if something awful might happen: 0 = Not at all Total CHELI-7 score (0-4 normal; 5-9 mild; 10-14 moderate; 15-21 severe): 0 Source: Developed by Drs. Mat Baptiste, Kathy Armendariz, Arpan Lewis and colleagues, with an educational china from [employer] Review of Systems Const Denies poor appetite and Denies weakness Eyes Denies no additional complaints ENT Reports Normal hearing present, Denies dizziness, Denies nasal congestion, Denies tinnitus and Denies sore throat Card Denies chest pain, Denies syncope, Denies rapid heart rate and Denies dyspnea Resp Denies cough and Denies dyspnea GI Denies change in stool character, Reports constipation, Denies diarrhea, Denies nausea and Denies vomiting Denies urinary frequency, Denies difficulty voiding and Denies dysuria Neuro Reports Normal hearing present, Denies confusion, Denies dizziness, Denies syncope and Denies weakness Psych Denies confusion Physical exam (Primary Care) Vital Signs: Last Vital Signs Temp 97.5 F 11/21/24 15:45 Pulse 105 H 11/21/24 15:45 BP 132/70 11/21/24 15:45 Pulse Ox 96 11/21/24 15:45 Oxygen Delivery Method Room Air 11/21/24 15:45 BMI result Body Mass Index 24.2 Tobacco/Smoking Status: Tobacco use Status Tobacco use date assessed 11/21/24 11/21/24 15:49 Patient Tobacco Use Status Former Tobacco user 11/21/24 15:49 Tobacco use type Cigarette 11/21/24 15:49 e-Cigarette/Vaping Use Never Used 11/21/24 15:49 PHQ-9: PHQ-9 Score PHQ-9: Total score 0 11/21/24 16:07 Depression Screening Interpretation: Negative Thrive Assessment: Date of Thrive Assessment Date Thrive assessed 11/21/24 11/21/24 15:49 Currently or been in a relationship where the following occur: I choose not to answer Const General: No confusion Orientation/consciousness: No confusion HENMT Head: Yes normocephalic Ears: external ears normal and TM's normal bilaterally Face and sinus: Yes normal facial exam Mouth: moist mucous membranes Throat: Yes tonsils normal Eyes Conjunctivae: conjunctivae normal Pupils: Equal, round and reactive pupils present and Pupil accommodation reflex normal Direct Ophthalmoscopy: normal light reflex Neck Neck: No lymphadenopathy Thyroid: Thyroid normal Chest Chest palpation & inspection: normal inspection of the chest Resp Effort & Inspection: normal respiratory effort and no audible wheezes Auscultation: clear to auscultation bilaterally, no crackles, no wheezes and lung sounds not diminished Cardio Rate: regular rate Rhythm: regular rhythm Peripheral pulses: radial pulses present and dorsalis pedis present GI Palpation (GI): no masses Auscultation: normal bowel sounds and normoactive bowel sounds Rectal Exam - Female: deferred Skin General skin exam: no rashes or lesions noted Rashes: no rashes Neuro General: No confusion Cranial nerves: Yes Equal, round and reactive pupils present and Yes Normal hearing present Cognition (Neuro): normal cognition Gait exam (Neuro): Normal gait present Motor exam (neuro): 5/5 motor strength present throughout Deep tendon reflexes (DTR's): Right brachioradialis reflex intensity grade: 2+, Left brachioradialis reflex intensity grade: 2+, Right patellar reflex intensity grade: 2+ and Left patellar reflex intensity grade: 2+ Extrem General: No edema Results AMB Hemoglobin A1c AMB Hemoglobin A1c 9.9 % Last Edit by JOSEE Harp on 11/21/24 16:20 Coding Level of Care Code Est Pt Prev Care >65y(91123) Diagnoses Annual physical exam Z00.00 Type 2 diabetes mellitus with hyperglycemia, without long-term current use of insulin E11.65 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 insulin use: without shelter use Hypercholesterolemia E78.00 Hypertension, unspecified type I10 Hypertension type: unspecified Mild intermittent asthma without complication J45.20 Asthma severity: mild Asthma persistence: intermittent Asthma complication type: uncomplicated Tubular adenoma D36.9 Breast cancer screening by mammogram Z12.31 Assessment & Plan Assessment & Plan (1) Annual physical exam: Code(s): Z00.00 - Encounter for general adult medical examination without abnormal findings Category: Medical Plan: Patient is advised to eat healthy, keep well hydrated, keep active and have adequate sleep. (2) Type 2 diabetes mellitus with hyperglycemia: Code(s): E11.65 - Type 2 diabetes mellitus with hyperglycemia Category: Medical Qualifiers: Diabetes mellitus shelter insulin use: without termite renewal inspector use Qualified Code(s): E11.65 - Type 2 diabetes mellitus with hyperglycemia Plan: Decrease the amount of carbohydrate intake, pasta, bread, rice and potatoes are all sugar and that is aside from all the sweet stuff, remember that fruits are good but they are Sweet also. Hemoglobin A1c goal of less than 7.0 patient is on Jardiance 25 mg once a day glipizide 5 mg once a day (3) Hypercholesterolemia: Code(s): E78.00 - Pure hypercholesterolemia, unspecified Category: Medical Plan: Avoid fried foods, chicken skin, eggs, butter margarine, pastries and meat. Be it pork or beef they have a lot of cholesterol patient is on atorvastatin 80 mg once a day (4) Hypertension: Code(s): I10 - Essential (primary) hypertension Category: Medical Qualifiers: Hypertension type: unspecified Qualified Code(s): I10 - Essential (primary) hypertension Plan: Continue with blood pressure medication. Decrease salt intake and exercise on lisinopril 5 mg once a day (5) Asthma: Code(s): J45.909 - Unspecified asthma, uncomplicated Category: Medical Qualifiers: Asthma severity: mild Asthma persistence: intermittent Asthma complication type: uncomplicated Qualified Code(s): J45.20 - Mild intermittent asthma, uncomplicated Plan: Patient on Wixela and albuterol and DuoNebs (6) Tubular adenoma: Code(s): D36.9 - Benign neoplasm, unspecified site Category: Medical Plan: Patient is reminded about colonoscopy for next year. (7) Breast cancer screening by mammogram: Code(s): Z12.31 - Encounter for screening mammogram for malignant neoplasm of breast Category: Medical Plan: Patient is reminded about mammogram Plan History of Present Illness The patient is a 69-year-old female presenting for a wellness visit. She has a significant history of Type 2 Diabetes Mellitus, initially diagnosed several years ago. The patient's blood sugar control has been suboptimal, with a recent hemoglobin A1c of 9.7% noted in November 2023. She is currently prescribed glipizide 5 mg daily but notes inadequate blood sugar monitoring due to issues with obtaining test strips. Elevated blood glucose levels have intermittently been noted, with a fasting blood sugar of 149 mg/dL observed in November 2023. She mentions dietary challenges, having recently acquired a bread maker, and acknowledges inconsistent adherence to a diabetic-appropriate diet. The patient also has a history of asthma, for which she uses multiple inhalers, including albuterol for rescue and Wixela for maintenance. She reports significantly reduced reliance on her albuterol inhaler recently, indicating improved control, and notes the importance of rinsing her mouth after inhaler use to prevent oral thrush. Furthermore, she has a longstanding history of hypercholesterolemia and essential hypertension. She is currently on atorvastatin 80 mg and lisinopril 5 mg to manage these conditions. Her lipid profile has improved on this regimen, with a recent LDL recorded at 113 mg/dL, down from a prior value of 196 mg/dL. The patient also has carotid artery disease and osteopenia, monitored regularly with up-to-date imaging and evaluations. Her bone density scan remains current, last performed in January 2024. Health Maintenance - Up-to-date mammogram, last completed October 2023 - Bone density scan completed January 2024 - Blood work including complete blood count, electrolytes, and renal function normal as of November 2023 - Elevated glucose and hemoglobin A1c noted; planned reevaluation with blood fasting - LDL cholesterol managed, improvement from 196 mg/dL to 113 mg/dL - Colonoscopy reminder for scheduling next year - Maintenance of asthma treatment regimen with inhaler use monitoring - Blood pressure effectively managed; medication regimen includes lisinopril 5 mg daily - Reminders for lifestyle modification and dietary adherence Social History - Patient lives with her and granddaughter - Reports dietary difficulty with food preparation catering to family and her specific dietary needs - Works at the [employer] - Low alcohol consumption, approximately once a month - No current tobacco use - Reports inconsistency in diet management relating to diabetes - Engages in physical activities and finds asthma control improving with decreased albuterol usage Review of Systems - General: Denies fever, denies weight changes. - Respiratory: Reports no shortness of breath, no recent asthma exacerbations. - Cardiovascular: Reports palpitations occasionally. - Gastrointestinal: Reports occasional diarrhea, no constipation. - Neurological: Reports occasional tingling in feet. - Genitourinary: Denies nocturia. - Dermatologic: Reports no new skin changes. Physical Exam General: Cooperative, healthy appearing, comfortable, no acute distress and well developed Orientation: Patient oriented x3 Limitations: No limitations Head: Normal to inspection Ears: Hearing grossly normal bilaterally Nose: Normal external nose present Face and sinus: Normal facial exam Eyes: Appearance normal, both eyes and all related structures Neck: Normal visual inspection and Yes full ROM Respiratory: Wheezing noted, improved with deep breathing and coughing Cardiovascular: Regular rate and rhythm with occasional palpitations. Normal S1 and S2 GI: Normal to inspection. Soft to palpation and nontender Skin: No rashes or lesions noted Neuro: Patient oriented x3 Extremities: Normal to inspection, no numbness, occasional tingling noted in feet Results - Labs: Hemoglobin A1c 9.7% (November 2023), LDL cholesterol 113 mg/dL - Urinalysis and other labs ordered for fasting blood work Plan I will continue the patient's current treatment regimens and introduce Jardiance to aid further in managing her type 2 diabetes, with hopes of improved blood sugar control. Monitoring will continue with planned fasting lab work to assess the effectiveness of these interventions. Her hypertension and hypercholesterolemia are well-managed under current therapy; hence these medications remain unchanged. Asthma remains controlled with her current inhaler regimen, requiring no adjustments. The patient will maintain effective health maintenance practices by adhering to scheduled screenings and preventive care measures. Lifestyle modifications, implemented as family dynamics permit, are encouraged to enhance dietary management and activity levels. Patient was informed and verbally consented to the use of an ambient scribe for clinic note documentation during this visit. Discussion Notes During this visit, I reviewed with the patient the implications of her recent lab results, emphasizing the need for enhanced blood glucose management due to her elevated hemoglobin A1c levels. I discussed the initiation of Jardiance as an added therapeutic approach, given her history and current control status. The benefits, especially regarding renal and cardiovascular protection, were highlighted. I reiterated the necessity for dietary modifications, mainly reducing carbohydrate and sugar intake, stressing the need for strict dietary oversight amidst family meal preparations. We discussed adherence to ongoing health maintenance and the importance of regular inhaler use for asthma management. Follow-up was arranged for three months with interim lab work ordered to monitor the success of treatment adjustments. Potential insurance coverage issues regarding test strips and monitoring devices were also addressed, with alternative acquisition routes suggested. Patient Instructions - Continue taking atorvastatin, glipizide, and lisinopril as prescribed. - Start Jardiance only after ensuring coverage; follow with a self-monitoring diet and exercise routine. - Refrain from excess carbohydrate consumption, particularly fresh bread. - Prioritize adherence to asthma inhalers and ensure proper mouth washing after use. - Schedule and attend lab work for fasting blood sugar levels. - Maintain routine health screenings and preventative care appointments. - Increase daily physical activity to improve overall wellness. - Monitor any changes in health status and report immediately if issues arise. - Follow up in three months or sooner if new symptoms or concerns develop. Orders: Orders Comprehensive Met. Panel Today E11.65 - Type 2 diabetes mellitus with hyperglycemia Thyroid Stimulating Hormone Today E11.65 - Type 2 diabetes mellitus with hyperglycemia Lipid Panel Today E11.65 - Type 2 diabetes mellitus with hyperglycemia, E78.00 - Pure hypercholesterolemia, unspecified Creatinine Urine Today E11.65 - Type 2 diabetes mellitus with hyperglycemia UA CC w/rflx Micro + Cult Today E11.65 - Type 2 diabetes mellitus with hyp erglycemia, R30.0 - Dysuria AMB Hemoglobin A1c Today E11.65 - Type 2 diabetes mellitus with hyperglycemia Complete Blood Count Auto Diff Today E11.65 - Type 2 diabetes mellitus with hyperglycemia Free T4 (Free Thyroxine) Today E11.65 - Type 2 diabetes mellitus with hyperglycemia Vitamin B12 and Folate Today E11.65 - Type 2 diabetes mellitus with hyperglycemia Vitamin D 25-OH Total Today E11.65 - Type 2 diabetes mellitus with hyperglycemia Microalbumin, Random (w Creat) Today E11.65 - Type 2 diabetes mellitus with hyperglycemia Medications: New blood-glucose meter,continuous ([employer] G7 Mine Development Engineer) As directed 1 ea 0RF E11.65 - Type 2 diabetes mellitus with hyperglycemia blood-glucose sensor ([employer] G7 Sensor device) As directed 6 ea 3RF E11.65 - Type 2 diabetes mellitus with hyperglycemia Refilled atorvastatin 80 mg PO BEDTIME 90 tabs 0RF E11.65 - Type 2 diabetes mellitus with hyperglycemia blood sugar diagnostic (FreeStyle Test strips) As directed 100 ea 2RF E11.65 - Type 2 diabetes mellitus with hyperglycemia blood-glucose meter (FreeStyle System Kit) As directed 1 ea 0RF E11.65 - Type 2 diabetes mellitus with hyperglycemia lisinopril 5 mg PO DAILY 90 days 90 tabs 2RF I10 - Essential (primary) hypertension lancets (FreeStyle Lancets) As directed 100 ea 2RF E11.65 - Type 2 diabetes mellitus with hyperglycemia empagliflozin (Jardiance) 25 mg PO QAM 30 days 30 tabs 10RF E11.65 - Type 2 diabetes mellitus with hyperglycemia
[2024-11-21 15:45] VITALS: BP 132/70; PULSE 105; TEMP 36.4; O2SAT 96; BMI 24.2
== END 2024-11-21 16:38 | disposition home or self-care (01) ==
LOC: HO.HMCH 15:40
PROVIDERS: PCP Internal Medicine; Visit Provider Internal Medicine
DX: Z00.00 Encounter for general adult medical examination without abnormal findings (principal); E11.65 Type 2 diabetes mellitus with hyperglycemia; E78.00 Pure hypercholesterolemia, unspecified; I10 Essential (primary) hypertension; J45.20 Mild intermittent asthma, uncomplicated; D36.9 Benign neoplasm, unspecified site; Z12.31 Encounter for screening mammogram for malignant neoplasm of breast

== ENCOUNTER → 2024-11-21 15:39 | Outpatient (BNVA) | payer MEDICARE, OTHER, SELFPAY | PROVIDERS: PCP Internal Medicine; Visit Provider Internal Medicine | DX: Z00.00 Encounter for general adult medical examination without abnormal findings (principal); E11.65 Type 2 diabetes mellitus with hyperglycemia; E78.00 Pure hypercholesterolemia, unspecified; I10 Essential (primary) hypertension; J45.20 Mild intermittent asthma, uncomplicated; D36.9 Benign neoplasm, unspecified site | CPT/HCPCS: 83036; 99397 ==

== ENCOUNTER 2024-11-29 06:32 | Outpatient (REF) | payer MEDICARE, OTHER, SELFPAY ==
[2024-11-29 07:01] LABS: MANUAL DIFF FLAG NO
[2024-11-29 07:11] LABS: Basophils Percent Auto 0.7 % (0-2); Eosinophils Absolute Auto 0.2 X10*3/uL (0.0-0.4); Eosinophils Percent Auto 3.3 % (0-4); Hematocrit 42.3 % (37.0-47.0); Hemoglobin 15.1 g/dl (12.0-16.0); Imm Gran Abs Auto 0.03 X10*3/uL (0.00-0.03); Imm Gran Pct Auto 0.5 % (0.0-0.4); Lymphocytes Absolute Auto 2.5 X10*3/uL (1.2-4.9); Lymphocytes Percent Auto 42.2 % (20-40); Mean Corpuscular HGB Conc 35.7 g/dl (31.0-35.0); Mean Corpuscular Hemoglobin 31.3 pg (27.0-33.0); Mean Corpuscular Volume 87.8 fL (80.0-98.0); Monocytes Absolute Auto 0.4 X10*3/uL (0.1-1.2); Monocytes Percent Auto 7.3 % (2-11); Neutrophils Absolute Auto 2.8 x10*3/uL (2.0-8.3); Platelet Count 262 X10*3/uL (160-400); Red Blood Count 4.82 X10*6/uL (4.20-5.50); Red Cell Distribution Width 11.9 % (11.0-16.0)
[2024-11-29 07:19] LABS: Appearance Urine Clear; Color Urine Yellow; Glucose Urine UA >=1000 mg/dL (Negative); Leukocyte Esterase Urine Negative (Negative); Nitrite Urine Negative (Negative); Specific Gravity - Urine >= 1.030 (1.005-1.025); UMIC TRIGGER UACC YES; Urine Blood Negative (Negative); Urine Ketones Negative (Negative); Urine Protein Negative (Neg-Trace)
[2024-11-29 07:40] LABS: Creatinine Urine 50.58 mg/dL; Microalbum/Creatinine Ratio Ur 13.8 ug/mg cr (<30)
[2024-11-29 07:46] LABS: Bacteria Urine None Seen (None Seen); Hyaline Casts Urine 0-2 /LPF (0-2); RBC Urine 0-2 /HPF (0-2); Squamous Epithelial Cell Urine 0-2 /HPF (0-2); WBC Urine 0-5 /HPF (0-5)
[2024-11-29 07:52] LABS: Alanine Aminotransferase 33 U/L (0-31); Albumin Level 4.2 g/dL (3.5-5.0); Alkaline Phosphatase 86 U/L (39-117); Anion Gap 11 (12-20); Aspartate Amino Transferase 20 U/L (5-31); Bilirubin Total 0.6 mg/dL (0.0-1.0); Blood Urea Nitrogen 19 mg/dL (9-16); Calcium 9.3 mg/dL (8.4-10.2); Carbon Dioxide 26 mmol/L (22-29); Chloride 104 mmol/L (96-108); Cholesterol 264 mg/dL (<200); Estimated Glomerular Filt Rate > 60; Glucose Random 247 mg/dL (60-115); HDL Cholesterol 42 mg/dL (>40); LDL Cholesterol Calculated 175 mg/dL (<100); Potassium 4.3 mmol/L (3.3-5.1); Sodium 137 mmol/L (135-145); Total Protein 6.7 g/dL (6.5-8.0); Triglycerides 237 mg/dL (<150)
[2024-11-29 08:10] LABS: Free T4 (Free Thyroxine) 1.08 ng/dL (0.71-1.85); Thyroid Stimulating Hormone 1.12 uIU/mL (0.32-4.0)
[2024-11-29 08:16] LABS: Folate 15.2 ng/mL (> or = 4.0); Vitamin B12 936 pg/mL (200-900)
== END 2024-11-29 06:33 | disposition home or self-care (01) ==
LOC: HO.LAB 06:32
PROVIDERS: PCP Internal Medicine; Visit Provider Internal Medicine
DX: E11.65 Type 2 diabetes mellitus with hyperglycemia (principal); E78.00 Pure hypercholesterolemia, unspecified
CPT/HCPCS: 36415; 80053; 80061; 81001; 82043; 82306; 82570; 82607; 82746; 84439; 84443; 85025

== ENCOUNTER 2024-12-10 15:49 | Outpatient (REF) | payer MEDICARE, OTHER, SELFPAY | END 2024-12-10 15:50 | disposition home or self-care (01) | LOC: HO.MAMMO 15:49 | PROVIDERS: PCP Internal Medicine; Visit Provider Internal Medicine | DX: Z12.31 Encounter for screening mammogram for malignant neoplasm of breast (principal) | CPT/HCPCS: 77063; 77067 ==

== ENCOUNTER → 2024-12-10 16:15 | Outpatient (BNV) | payer MEDICARE, OTHER, SELFPAY | PROVIDERS: PCP Internal Medicine; Visit Provider Internal Medicine | DX: Z12.31 Encounter for screening mammogram for malignant neoplasm of breast (principal) | CPT/HCPCS: 77063; 77067 ==

== ENCOUNTER 2025-01-07 10:29 | Outpatient (AMB) | payer MEDICARE, OTHER, SELFPAY ==
--- NOTE | 2025-01-07 11:22 | AM.OFFWIN_ITS ---
Intake Vital Signs 01/07/25 11:31 Weight 134 lb 6 oz BP 130/76 Blood Pressure Location Lt brachial Position Sitting Pulse 98 Pulse Source Pulse Oximeter Temp 98.9 F Temp Source Oral Pulse Oximetry (%) 96 Oxygen Delivery Method Room Air Intake Visit Reasons: EP loss of voice, cough, congestion, sore throat Intake Note: Patient here for dry cough, sore throat(thinks from cough), congestion and loss of voice. Patient Tobacco Use Status: Former Tobacco user Allergies metformin Adverse Reaction (Intermediate, Verified 01/07/25 11:32) diarrhea Do you need a note to return to daycare/school/sports/work: Yes HPI HPI Comments History of Present Illness Details 69 y/o Female patient who [facility] with c/o Dry cough, chest tightness, Sore-throat and loss of voice for 2 weeks now. She has been using different OTC cough remedies with minimal relief. Denies fevers, chills, nausea or vomiting. [facility] Medical History (Updated 01/07/25 @ 12:18 by Magnolia Mcginnis NP) Bronchitis URI (upper respiratory infection) Asthma exacerbation Extensor intersection syndrome of left wrist Osteoporosis Tubular adenoma Diverticulosis Hypertension Blood in stool Diarrhea, infectious, adult Hyperlipidemia LDL goal <70 Tubular adenoma of colon Hypercholesterolemia Type 2 diabetes mellitus with hyperglycemia Carotid stenosis Asthma History of renal calculi Fatty liver Surgical History H/O colonoscopy History of surgery Family History Mother No problems noted. Sister Pacemaker Brother No problems noted. Sister No problems noted. Son No problems noted. Daughter No problems noted. 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 Current occupational exposures/hazards: No Cognitive needs: No Hearing needs: No Vision needs: Yes (glasses ) Review of Systems Const All systems reviewed & are unremarkable except as noted in HPI and below Physical Exam Vital Signs: Last Vital Signs Temp 98.9 F 01/07/25 11:31 Pulse 98 01/07/25 11:31 BP 130/76 01/07/25 11:31 Pulse Ox 96 01/07/25 11:31 Oxygen Delivery Method Room Air 01/07/25 11:31 Const General: no acute distress Orientation/consciousness: patient oriented x3 HEENT Head: Yes normocephalic Ears: external ears normal and TM's normal bilaterally General nose exam: Normal external nose present Face and sinus: Yes sinuses nontender Mouth: moist mucous membranes Throat: Yes uvula midline Resp Effort & Inspection: normal respiratory effort and able to speak in complete sentences Auscultation: clear to auscultation bilaterally, no crackles, no rales, no rhon chi and no wheezes Cardio Rhythm: regular rhythm Heart sounds: S1 normal heart sound present and S2 normal heart sound present Neuro General: patient oriented x3 Assessment & Plan Assessment & Plan (1) Bronchitis: Code(s): J40 - Bronchitis, not specified as acute or chronic Plan: Ordered Z-pack and Prednisone. OTC cough remedies. Rest and hydrate well with warm fluids with honey. Medications: New dextromethorphan polistirex ER (Delsym 12 hour) 10 mL PO Q12H 89 mL 0RF cough J40 - Bronchitis, not specified as acute or chronic azithromycin 500 mg PO DAILY 3 days 3 tabs 0RF J40 - Bronchitis, not specified as acute or chronic prednisone 20 mg PO DAILY 5 tabs 0RF J40 - Bronchitis, not specified as acute or chronic Coding Level of Care Code Est Pt Level 4 (79729) Diagnoses Bronchitis J40 Time Spent (min) 20
[2025-01-07 11:31] VITALS: BP 130/76; PULSE 98; TEMP 37.2; O2SAT 96
== END 2025-01-07 12:45 | disposition home or self-care (01) ==
PROVIDERS: PCP Internal Medicine; Visit Provider Nurse Practitioner Family
DX: J40 Bronchitis, not specified as acute or chronic (principal)

== ENCOUNTER → 2025-01-07 10:29 | Outpatient (BNVA) | payer MEDICARE, OTHER, SELFPAY | PROVIDERS: PCP Internal Medicine; Visit Provider Nurse Practitioner Family | DX: J40 Bronchitis, not specified as acute or chronic (principal) | CPT/HCPCS: 99212 ==

== ENCOUNTER 2025-06-11 14:28 | Outpatient (AMB) | payer MEDICARE, OTHER, SELFPAY ==
--- NOTE | 2025-06-11 14:31 | A.OFFPC_ITS ---
Vital Signs 06/11/25 14:32 Height 5 ft 2 in Weight 129 lb 8 oz BMI 23.7 BP 142/78 H Blood Pressure Location Lt brachial Position Sitting Pulse 94 Pulse Source Pulse Oximeter Temp 97.1 F Temp Source Temporal Artery Scan Pulse Oximetry (%) 97 Oxygen Delivery Method Room Air Intake Visit Reasons: DM Allergies empagliflozin (From Jardiance) Adverse Reaction (Intermediate, Unverified 06/11/25 15:06) uti metformin Adverse Reaction (Intermediate, Verified 06/11/25 14:35) diarrhea Tobacco use date assessed: 06/11/25 Fall risk assessment: No Falls in past year Last assessed Fall Risk: 06/11/25 Dental Screening Dental Screen Date: 06/11/25 Did you have a dental visit in the last 12 months?: No Did you have a dental problem in the last 6 months where you did not have access to dental care?: No Was dental information given to patient?: Patient has dentist [facility] Medical History Bronchitis URI (upper respiratory infection) Asthma exacerbation Extensor intersection syndrome of left wrist Osteoporosis Tubular adenoma Diverticulosis Hypertension Blood in stool Diarrhea, infectious, adult Hyperlipidemia LDL goal <70 Tubular adenoma of colon Hypercholesterolemia Type 2 diabetes mellitus with hyperglycemia Carotid stenosis Asthma History of renal calculi Fatty liver Surgical History H/O colonoscopy History of surgery Family History Mother No problems noted. Sister Pacemaker Brother No problems noted. Sister No problems noted. Son No problems noted. Daughter No problems noted. 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 1. Little interest or pleasure in doing things: not at all 2. Feeling down, depressed, or hopeless: not at all 3. Trouble falling or staying asleep, or sleeping too much: not at all 4. Feeling tired or having little energy: several days 5. Poor appetite or overeating: not at all 6. Feeling bad about yourself - or that you are a failure or have let yourself or your family down: not at all 7. Trouble concentrating on things, such as reading the newspaper or watching television: not at all 8. Moving or speaking so slowly that other people could have noticed. Or the opposite - being so fidgety or restless that you have been moving around a lot more than usual: not at all 9. Thoughts that you would be better off or of hurting yourself in some way: not at all Total score: 1 Depression Screening Interpretation: Positive Depression Screening Done: Yes Source: Developed by Drs. Mat Baptiste, Kathy Armendariz, Arpan Lewis and colleagues, with an educational china from [employer]. Thrive Questionnaire Date Thrive assessed: 11/21/24 I am a: Patient What is your living situation today?: I have a steady place to live Within the past 12 months, did the food you bought not last and you didn't have the money to get more?: I choose not to answer this question Within the past 12 months, did you worry whether your food would run out before you got money to buy more?: I choose not to answer this question Do you have trouble paying for medicines?: No Do you have trouble getting transportation to medical appointments?: No Do you have trouble paying your heating and electricity bill?: No Do you have trouble taking care of your child, family member or friend?: No Do you have trouble with day-to-day activities such as bathing, preparing meals, shopping, managing finances, etc.?: No Are you currently unemployed and looking for a job?: No Are you interested in more education?: No Please select the resources that you would like help with: None Currently or been in a relationship where the following occur: I choose not to answer THRIVE Score: 0 AUDIT C Alcohol Use Questionnaire (AUDIT-C) 1. How often do you have a drink containing alcohol?: Monthly or less 2. How many drinks containing alcohol do you have on a typical day when you are drinking?: 1 or 2 3. How often do you have six or more drinks on one occasion?: Never Total Score: 1 CHELI-7 AMB Questionnaire CHELI-7 Date CHELI - 7 assessed: 11/21/24 Feeling nervous, anxious, or on edge: 0 = Not at all Not being able to stop or control worryin = Not at all Worrying too much about different things: 0 = Not at all Trouble relaxin = Not at all Being so restless that it is hard to sit still: 0 = Not at all Becoming easily annoyed or irritable: 0 = Not at all Feeling afraid as if something awful might happen: 0 = Not at all Total CHELI-7 score (0-4 normal; 5-9 mild; 10-14 moderate; 15-21 severe): 0 Source: Developed by Drs. Mat Baptiste, Kathy Armendariz, Arpan Lewis and colleagues, with an educational china from [employer]. Physical exam (Primary Care) Vital Signs: Last Vital Signs Temp 97.1 F 06/11/25 14:32 Pulse 94 06/11/25 14:32 BP 142/78 H 06/11/25 14:32 Pulse Ox 97 06/11/25 14:32 Oxygen Delivery Method Room Air 06/11/25 14:32 BMI result Body Mass Index 23.7 Tobacco/Smoking Status: Tobacco use Status Tobacco use date assessed 06/11/25 06/11/25 14:37 Patient Tobacco Use Status Former Tobacco user 06/11/25 14:37 Tobacco use type Cigarette 06/11/25 14:37 e-Cigarette/Vaping Use Never Used 06/11/25 14:37 PHQ-9: PHQ-9 Score PHQ-9: Total score 1 06/11/25 15:18 Depression Screening Interpretation: Positive Thrive Assessment: Date of Thrive Assessment Date Thrive assessed 11/21/24 06/11/25 14:37 Currently or been in a relationship where the following occur: I choose not to answer Const General: alert; No acute distress Eyes Conjunctivae: conjunctivae normal Resp Auscultation: clear to auscultation bilaterally Cardio Rate: regular rate Rhythm: regular rhythm GI Inspection: Yes normal to inspection Extrem General: Yes normal to inspection and No edema Results AMB Hemoglobin A1c AMB Hemoglobin A1c 9.8 % Last Edit by Mag Briceno CMA on 06/11/25 14:45 Results Reviewed Results Reviewed: Laboratory Last Values Hgb A1c (Clinic) 9.8 % (4.0-6.0) H 06/11/25 14:38 Coding Level of Care Code Est Pt Level 4 (54824) Complex EM visit Add On G2211 Diagnoses Type 2 diabetes mellitus with hyperglycemia, without long-term current use of insulin E11.65 Diabetes mellitus snf insulin use: without terminal operations supervisor use Hypercholesterolemia E78.00 Hypertension, unspecified type I10 Hypertension type: unspecified Assessment & Plan Assessment & Plan (1) Type 2 diabetes mellitus with hyperglycemia: Code(s): E11.65 - Type 2 diabetes mellitus with hyperglycemia Category: Medical Qualifiers: Diabetes mellitus terminal operations supervisor insulin use: without terminal operations supervisor use Qualified Code(s): E11.65 - Type 2 diabetes mellitus with hyperglycemia Plan: Decrease the amount of carbohydrate intake, pasta, bread, rice and potatoes are all sugar and that is aside from all the sweet stuff, remember that fruits are good but they are Sweet also. Hemoglobin A1c goal of less than 7.0. Patient is on glipizide 5 mg once a day (2) Hypercholesterolemia: Code(s): E78.00 - Pure hypercholesterolemia, unspecified Category: Medical Plan: Avoid fried foods, chicken skin, eggs, butter margarine, pastries and meat. Be it pork or beef they have a lot of cholesterol LDL goal of less than 100 and triglyceride of less than 150 patient is supposed to be on atorvastatin 80 mg once a day (3) Hypertension: Code(s): I10 - Essential (primary) hypertension Category: Medical Qualifiers: Hypertension type: unspecified Qualified Code(s): I10 - Essential (primary) hypertension Plan: Continue with blood pressure medication. Decrease salt intake and exercise lisinopril 5 mg once a day Plan History of Present Illness The patient is a 70-year-old female presenting for a follow-up visit after being last seen in November for a physical examination. She has a history of asthma, diabetes mellitus, hypercholesterolemia, and hypertension. Her diabetes management has been challenging, with a recent hemoglobin A1c level of 9.8, indicating poor glycemic control. She was previously on Jardiance but discontinued it due to urinary tract infections and is currently taking glipizide. The patient also has hypercholesterolemia, with an LDL cholesterol level of 175, which is significantly above the target of less than 100. She is supposed to be on atorvastatin but has not been taking it consistently due to the number of medications she is prescribed. Her hypertension is managed with lisinopril, although her blood pressure readings have been slightly elevated. She has been advised to monitor her blood pressure at home regularly. The patient has a history of tubular adenoma, with the last colonoscopy performed in December 2020. She also has osteopenia, with the last bone density scan conducted in January 2024. She reports insomnia, which may be related to her medical conditions or lifestyle factors. 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 She has expressed concerns about her medication adherence and the impact of her health on her ability to enjoy life and care for her grandchildren. 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 1. Diabetes Mellitus The patient's diabetes management plan includes aiming for a hemoglobin A1c goal of less than 7.0. She is currently on glipizide 5 mg once daily and will be started on pioglitazone to help lower blood glucose levels. The patient is advised to monitor her diet, particularly reducing intake of high-carbohydrate foods such as rice and potatoes. 2. Hypercholesterolemia The patient's LDL cholesterol goal is less than 100 mg/dL, and she is supposed to be on atorvastatin 80 mg once daily. She has been advised to adhere to her medication regimen to achieve better cholesterol control. 3. Hypertension The patient's blood pressure management includes taking lisinopril 5 mg once daily. She is advised to monitor her blood pressure at home and report any consistently high readings. 4. Insomnia The patient reports insomnia, which may be related to her medical conditions or lifestyle factors. Further evaluation and management may be needed if symptoms persist. 5. Osteopenia The patient has osteopenia, with the last bone density scan conducted in January 2024. Continued monitoring and management are recommended. 6. Carotid Artery Disease The patient has carotid artery disease, though not severe enough to warrant intervention at this time. Regular monitoring and management of cardiovascular risk factors are advised. Discussion Notes During the visit, I discussed with the patient the importance of managing her diabetes, hypercholesterolemia, and hypertension to prevent complications such as stroke and cardiovascular disease. We reviewed her current medications and the need for adherence to achieve better control of her conditions. I also emphasized the significance of lifestyle modifications, including dietary changes and regular exercise, to improve her overall health. The patient was informed about the need for regular follow-up appointments and monitoring of her blood pressure and cholesterol levels. Patient Instructions - Take glipizide and pioglitazone as prescribed to manage blood sugar levels. - Adhere to atorvastatin regimen to control cholesterol. - Monitor blood pressure at home regularly and report any high readings. - Follow a balanced diet, reducing intake of high-carbohydrate foods. - Engage in regular physical activity, such as walking. - Schedule follow-up appointments and lab tests as advised. Orders: Orders Comprehensive Met. Panel Today E11.65 - Type 2 diabetes mellitus with hyperglycemia Free T4 (Free Thyroxine) Today E11.65 - Type 2 diabetes mellitus with hyperglycemia Vitamin B12 and Folate Today E11.65 - Type 2 diabetes mellitus with hyperglycemia AMB Hemoglobin A1c Today Z13.9 - Encounter for screening, unspecified Complete Blood Count Auto Diff Today E11.65 - Type 2 diabetes mellitus with hyperglycemia Lipid Panel Today E11.65 - Type 2 diabetes mellitus with hyperglycemia, E78.00 - Pure hypercholesterolemia, unspecified Thyroid Stimulating Hormone Today E11.65 - Type 2 diabetes mellitus with hyperglycemia Hemoglobin A1c Today E11.65 - Type 2 diabetes mellitus with hyperglycemia Vitamin D 25-OH Total Today E11.65 - Type 2 diabetes mellitus with hyperglycemia Creatinine Urine Today E11.65 - Type 2 diabetes mellitus with hyperglycemia Microalbumin, Random (w Creat) Today E11.65 - Type 2 diabetes mellitus with hyperglycemia Medications: New pioglitazone 15 mg PO DAILY 30 tabs 3RF E11.65 - Type 2 diabetes mellitus with hyperglycemia Refilled atorvastatin 80 mg PO BEDTIME 90 tabs 3RF E11.65 - Type 2 diabetes mellitus with hyperglycemia lisinopril 5 mg PO DAILY 90 tabs 2RF 90 days I10 - Essential (primary) hypertension
[2025-06-11 14:32] VITALS: BP 142/78; PULSE 94; TEMP 36.2; O2SAT 97; BMI 23.7
== END 2025-06-11 15:22 | disposition home or self-care (01) ==
LOC: HO.HMCH 14:29
PROVIDERS: PCP Internal Medicine; Visit Provider Internal Medicine
DX: E11.65 Type 2 diabetes mellitus with hyperglycemia (principal); E78.00 Pure hypercholesterolemia, unspecified; I10 Essential (primary) hypertension; Z13.9 Encounter for screening, unspecified

== ENCOUNTER → 2025-06-11 14:28 | Outpatient (BNVA) | payer MEDICARE, OTHER, SELFPAY | PROVIDERS: PCP Internal Medicine; Visit Provider Internal Medicine | DX: E11.65 Type 2 diabetes mellitus with hyperglycemia (principal); E78.00 Pure hypercholesterolemia, unspecified; I10 Essential (primary) hypertension; G47.00 Insomnia, unspecified; M85.80 Other specified disorders of bone density and structure, unspecified site; I25.10 Atherosclerotic heart disease of native coronary artery without angina pectoris | CPT/HCPCS: 83036; 96127; 99212 ==